=== PATIENT | female | born 1960 | race Caucasian/White ===

== ENCOUNTER 2017-08-02 11:13 | Outpatient (CLI) | payer OTHER | END 2017-08-02 11:14 | disposition home or self-care (01) | LOC: SC 11:13 | PROVIDERS: ATTEND Internal Medicine Pulmonary Disease | DX: G47.33 Obstructive sleep apnea (adult) (pediatric) (principal) | CPT/HCPCS: 99203; 99212 ==

== ENCOUNTER 2017-10-07 10:22 | Outpatient (CLI) | payer OTHER | END 2017-10-07 10:23 | disposition home or self-care (01) | LOC: SC 10:22 | PROVIDERS: ATTEND Nurse Practitioner Family | DX: G47.33 Obstructive sleep apnea (adult) (pediatric) (principal) | CPT/HCPCS: 99212; 99214 ==

== ENCOUNTER 2017-11-29 10:43 | Outpatient (CLI) | payer OTHER | END 2017-11-29 10:44 | disposition home or self-care (01) | LOC: SC 10:43 | PROVIDERS: ATTEND Nurse Practitioner Family | DX: G47.33 Obstructive sleep apnea (adult) (pediatric) (principal) | CPT/HCPCS: 99212; 99214 ==

== ENCOUNTER 2018-03-07 09:00 | Outpatient (CLI) | payer OTHER | END 2018-03-07 09:01 | disposition home or self-care (01) | LOC: SC 09:00 | PROVIDERS: ATTEND Nurse Practitioner Family | DX: G47.33 Obstructive sleep apnea (adult) (pediatric) (principal); R60.0 Localized edema; R06.00 Dyspnea, unspecified; I49.9 Cardiac arrhythmia, unspecified | CPT/HCPCS: 99212; 99214 ==

== ENCOUNTER 2018-03-10 16:12 | Outpatient (CLI) | payer OTHER ==
--- NOTE | 2018-03-11 08:41 | XRAY Report ---
REVISED: THIS REPORT WAS ORIGINALLY SIGNED ON 03/11/2018 @ 0842. THE PRIMARY CARE PROVIDER FIELD REVISED ON 03/17/2018. Procedure Date: 03/10/2018 Accession Number: [id number] Procedure: XR - Chest 2 View X-Ray CPT Code: 63119 FULL RESULT: EXAM: Chest 2 View X-Ray DATE: 03/10/2018 4:51 PM CLINICAL HISTORY: DYSPNEA, IRREGULAR HEARTBEAT COMPARISON: None. TECHNIQUE: 2 views. FINDINGS: Lungs/Pleura: No focal opacities evident. No pneumothorax or pleural effusion. Normal volumes. Mediastinum: The cardiac silhouette remains enlarged. Other: None. IMPRESSION: Stable cardiomegaly. No evidence of acute cardiopulmonary disease. RADIA MTDD
== END 2018-03-10 16:13 | disposition home or self-care (01) ==
LOC: RT 16:12 → DI 16:13
PROVIDERS: ATTEND Nurse Practitioner Family
DX: R06.00 Dyspnea, unspecified (principal); I49.9 Cardiac arrhythmia, unspecified
CPT/HCPCS: 71046; 93005

== ENCOUNTER 2018-04-11 08:51 | Outpatient (CLI) | payer OTHER | END 2018-04-11 08:52 | disposition home or self-care (01) | LOC: SC 08:51 | PROVIDERS: ATTEND Nurse Practitioner Family | DX: G47.33 Obstructive sleep apnea (adult) (pediatric) (principal) | CPT/HCPCS: 99212; 99214 ==

== ENCOUNTER 2018-06-13 11:26 | Outpatient (CLI) | payer OTHER | END 2018-06-13 11:27 | disposition home or self-care (01) | LOC: SC 11:26 | PROVIDERS: ATTEND Nurse Practitioner Family | DX: G47.33 Obstructive sleep apnea (adult) (pediatric) (principal) | CPT/HCPCS: 99212; 99214 ==

== ENCOUNTER 2018-12-29 10:21 | Outpatient (CLI) | payer OTHER | END 2018-12-29 10:22 | disposition home or self-care (01) | LOC: SC 10:21 | PROVIDERS: ATTEND Nurse Practitioner Family | DX: G47.33 Obstructive sleep apnea (adult) (pediatric) (principal); R60.0 Localized edema | CPT/HCPCS: 99212; 99215 ==

== ENCOUNTER 2019-04-06 13:13 | Outpatient (CLI) | payer OTHER | END 2019-04-06 13:14 | disposition home or self-care (01) | LOC: CAM 13:13 | PROVIDERS: ATTEND Family Medicine | DX: F43.0 Acute stress reaction (principal); M79.604 Pain in right leg | CPT/HCPCS: 97810; 97811 ==

== ENCOUNTER 2019-04-16 20:45 | Outpatient (CLI) | payer OTHER | END 2019-04-16 20:46 | disposition home or self-care (01) | LOC: SC 20:45 | PROVIDERS: ATTEND Internal Medicine Pulmonary Disease | DX: G47.33 Obstructive sleep apnea (adult) (pediatric) (principal) | CPT/HCPCS: 95811 ==

== ENCOUNTER 2019-05-15 09:20 | Outpatient (CLI) | payer OTHER ==
[2019-05-15 10:36] VITALS: BP 120/70
--- NOTE | 2019-05-15 10:36 | SLEEP CARE CONSULTATION ---
Information from patient questionnaire entered by Cynthia Matson. I have reviewed and concur with the information entered by Cynthia Matson. This document represents the service I personally performed and the decisions made by me, Mei Bonilla, RN, MSN, BRUSHER MACHINE. History of Present Illness Previous diagnosis: Moderate, Obstructive Sleep Apnea-Hypopnea Syndrome AHI: 16.9 Reason for CPAP/BiPAP follow up: with sleep study, other (DIFFICULTY GETTING SUPPLIES) Equipment type: BiPAP Equipment obtained from: [facility] Mask style: Nasal Mask brand: Respironics (Dreamwear nasal pillows) Backup mask available: No Prior sleep studies: Yes Year and Where: 2010 [facility] additional information: She was transferred to [place], they called her twice but never sent supplies. Thus she went back to [facility] to get supplies and got one set of supplies si nce then. Consultation with direct care staffer and informed patient her dyspnea is from her weight and the peripheral edema is from high BiPAP pressure. A manual titration study was advised for further evaluation of her pressure needs and completed with follow up of results today. She has started consultation with bariatric surgeon about a month ago and has appointments with senior buyer planner and aircraft detail draftsperson and psychiatrist. Sleep Study - Polysomnography Polysomnography findings: The quality of the study is good. BiPAP was initiated at 15/10 cmH2O and titrated up to 21/15 cmH2O. BiPAP at 21/15 cmH2O appeared to be optimal (AHI of 0.5 per hour on the pressure). There was supine REM sleep on the pressure. Oxygen saturation was mildly low from the frequent residual respiratory events on lower BiPAP settings. The patient appeared to have tolerated positive airway pressure therapy well. The patients sleep efficiency was slightly reduced due to sleep onset insomnia. The sleep architecture was normal. There was no periodic limb movement of sleep. Cardiac rhythm was normal sinus rhythm without significant arrhythmia. No abnormal behavior (parasomnia) observed during the night. CPAP Compliance Data - Data Reviewed with Patient Average duration of nightly device use: 6H 49M Current pressure setting (cmH2O): 17/9 Humidity settin Heated hose settin Average residual AHI: 5.3 Average large leak: 18 seconds On Oxygen: No Subjective Patient concerns: reports: other (no change in peripheral edema / wears compression hose). denies: aerophagia, mask discomfort (mask discomfort at sleep study from being too tight. ), air blowing in eyes, mask leak noise, condensation in mask/hose (does not use humidity ), nasal congestion, dry mouth, nose, throat, epistaxis Observed to snore while using device: No (she is single and sleeps alone) Current pressure setting perceived as: comfortable On therapy, patient: reports: sleeping better, awakening more refreshed, being more awake and alert during the day, more rested overall. denies: drowsiness while driving Initial [place] Sleepiness Scale score: 9 Current [place] Sleepiness Scale score: 6 Allergies and Home Medications Known drug allergies: Yes (cymbalta, prozac, benazapril, lisinopril, latex) Home medication list reviewed: Yes Allergy and home medication list: Medication Name (generic/name brand) Strength & Dosage Glipizide 10mg tab with meals (instead of Novolog) Cozaar 25mg tab one daily Gabapentin 300mg tab two tab pm Hydrocodone-Acetaminophen 5-500mg tab one half to one q4-6h PRN Novolog Insulin Units SQ on SS Lantus Insulin 56 Units SQ twice daily Valium 10mg tab as needed Robaxin 500mg tab HS and as needed. Calcium 600mg tab twice daily Singular 10mg tab one daily Aspirin 81mg tab one daily Vitamin D3 15,000IU cap one daily winter /[id number] summer Naprosyn 500mg tab one daily macrobid 100mg HS Allergy List Cymbalta Prozac Benazapril Lisinopril Latex ? Review of Systems Review of systems same as previous: No (essential tremor) Physical Exam Blood Pressure: 120/70 Cuff size: wrist Heart Rate: 71 O2 Saturation: 97 Height: 5 ft 6 in Weight (kg): 357 lb 12.8 oz Body Mass Index: 57.7 BMI Classification: Class 3 Impression and Plan 1. Obstructive Sleep Apnea-Hypopnea Syndrome, moderate, with good treatment compliance and slightly elevated residual AHI on compliance report on BiPAP of 17/9cmH20 for 14 days noted on modem. She states she uses nightly but modem stopped working and she did not have a SD card so I gave her one for back up. On BiPAP therapy, the patient has better sleep quality and is more rested overall. I will increase her BiPAP pressure to 21/08pdK41 as noted optimal on the titration study. She voiced she is not happy that she has a higher pressure need but will try using. I showed her how her apnea increases when in REM sleep on the hypnogram and explained rationale. If the pressure change is uncomfortable, she is advised to contact me to adjust for comfort. The typo in titration report impression will be corrected and copy sent to patient and her PCP. Since she does not use the humidity, I gave her a sample saline nasal spray to use prior to BiPAP for moisture due to her concerns of risk of dryness with higher pressure. If sufficient , she can use water in reservoir as a pass over before needed to heat plate. For her supply problems, she will stay with [facility] for now and determine if she will transfer at next follow up if still supply problems. Patient's apnea severity and rationale for treatment to reduce apnea, improve sleep quality and reduce cardiovascular and cerebrovascular events was reviewed. I also reviewed the benefit of consistent device use of CPAP for diabetes, anxiety. * Change BiPAP pressure to 21/15 cmH2O * saline nasal spray prior to BiPAP * Consider humidity if dryness symptoms * send corrected copy of report to patient and PCP * Notify me if snoring with mask or feeling that the pressure is too much or too little * Attempt to lose weight * Return for follow up in 1-2 months, or sooner if concerns arise I spent 100% of this 40 minute visit face to face with the patient with greater than 50% of this was spent time counseling the patient and coordination of care.
== END 2019-05-15 09:21 | disposition home or self-care (01) ==
LOC: SC 09:20
PROVIDERS: ATTEND Nurse Practitioner Family
DX: G47.33 Obstructive sleep apnea (adult) (pediatric) (principal)
CPT/HCPCS: 99212; 99215

== ENCOUNTER 2019-06-28 00:21 | Emergency (ER) | payer OTHER ==
[2019-06-28 01:05] LABS: BASOPHILS % (AUTO) 0.5 %; EOSINOPHILS # (AUTO) 0.1 10^3/uL (0.0-0.7); EOSINOPHILS % (AUTO) 1.7 %; HGB - HEMOGLOBIN 10.6 g/dL (12.0-16.0); LYMPHOCYTES # (AUTO) 2.5 10^3/uL (1.5-3.5); LYMPHOCYTES % (AUTO) 29.6 %; MEAN CORPUSCULAR HEMOGLOBIN 27.7 pg (27.0-31.0); MEAN CORPUSCULAR HGB CONC 30.5 g/dL (32.0-36.0); MEAN CORPUSCULAR VOLUME 90.8 fL (81.0-99.0); MEAN PLATELET VOLUME 9.7 fL (7.9-10.8); MONOCYTES # (AUTO) 0.8 10^3/uL (0.0-1.0); NEUTROPHILS # (AUTO) 4.9 10^3/uL (1.5-6.6); NEUTROPHILS % (AUTO) 58.6 %; PLT - PLATELET COUNT 274 10^3/uL (130-450); RED BLOOD COUNT 3.82 10^6/uL (4.20-5.40); RED CELL DISTRIBUTION WIDTH 13.5 % (12.0-15.0); WHITE BLOOD COUNT 8.3 x10^3/uL (4.8-10.8)
[2019-06-28 01:06] LABS: BILIRUBIN,URINE NEGATIVE (NEGATIVE); CLARITY,URINE CLEAR (CLEAR); GLUCOSE, URINE (UA) 100 mg/dL (NEGATIVE); KETONES,URINE (UA) NEGATIVE (NEGATIVE); LEUKOCYTE ESTERASE, URINE NEGATIVE (NEGATIVE); NITRITE,URINE NEGATIVE (NEGATIVE); OCCULT BLOOD,URINE NEGATIVE (NEGATIVE); PH,URINE 5.5 PH (5.0-7.5); PROTEIN,URINE NEGATIVE (NEGATIVE); UROBILINOGEN,URINE 0.2 (NORMAL) E.U./dL (NORMAL)
[2019-06-28 01:19] LABS: ALBUMIN 3.6 g/dL (3.2-5.5); ALBUMIN/GLOBULIN RATIO 0.9 (1.0-2.2); BILIRUBIN,TOTAL 0.7 mg/dL (0.2-1.0); CREATININE 0.8 mg/dL (0.4-1.0); TOTAL PROTEIN 7.8 g/dL (6.7-8.2)
--- NOTE | 2019-06-28 01:21 | ED Physician Documentation ---
PD HPI ABD PAIN - Stated complaint Stated Complaint: STOMACH PX - Chief complaint Chief Complaint: Abd Pain - History obtained from History obtained from: Patient - History of Present Illness Timing - onset: Yesterday, Other (episodic for momths but this episode began 1-2 days ago and is now severe at times) Timing - duration: Days Timing - details: Waxing and waning Pain level max: 6 Pain level now: 4 Quality: Sharp Location: All over / everywhere Radiation: No: Chest, , Lower back, Left flank, Left shoulder, Right flank, Right shoulder, Upper back Improved by: Other (no ameliorating factors) Worsened by: Other (no apparent exacerbating factors) Associated symptoms: Dysuria. No: Fever, Nausea, Vomiting, Diarrhea, Constipation Similar symptoms before: No diagnosis Recently seen: Not recently seen Review of Systems Constitutional: reports: Reviewed and negative Cardiac: reports: Reviewed and negative Respiratory: reports: Reviewed and negative GI: reports: Abdominal Pain. denies: Nausea, Vomiting, Constipation, Diarrhea : reports: Dysuria Musculoskeletal: denies: Back pain PD PAST MEDICAL HISTORY - Past Medical History Cardiovascular: Hypertension, High cholesterol Endocrine/Autoimmune: Type 2 diabetes : Chronic bladder infection Musculoskeletal: Chronic back pain - Past Surgical History Past Surgical History: Yes Ortho: Other - Present Medications Home Medications: Ambulatory Orders Medication Instructions Recorded Confirmed Diazepam [Valium] 10 mg PO Q8H PRN 05/15/16 05/15/16 Estradiol [Estrace] 42.5 gm VG DAILY 05/15/16 05/15/16 Glipizide [Glipizide Xl] 2 tab PO BID 05/15/16 05/15/16 Insulin Aspart [Novolog Flexpen] SQ TID 05/15/16 Insulin Glargine,Hum.rec.anlog 56 units SQ DAILY PM 05/15/16 05/15/16 [Lantus] Losartan [Cozaar] 25 mg PO DAILY 05/15/16 05/15/16 Methocarbamol 500 - 1,000 mg PO QID PRN 05/15/16 05/15/16 Naproxen [Naprosyn] 500 mg PO BID PRN 05/15/16 05/15/16 Nitrofurantoin Monohyd/M-Cryst 100 mg PO DAILY 05/15/16 05/15/16 [Macrobid 100 mg Capsule] Gabapentin 600 mg PO QPM 06/28/19 06/28/19 Montelukast [Singulair] 10 mg ORAL DAILY 06/28/19 06/28/19 Ondansetron Odt [Zofran] 4 mg TL Q6H PRN #10 tablet 06/28/19 Ondansetron [Ondansetron Odt] 8 mg PO QID 06/28/19 06/28/19 - Allergies Allergies/Adverse Reactions: Allergies Allergy/AdvReac Type Severity Reaction Status Date / Time fluoxetine HCl * Allergy Unknown Verified 04/28/16 21:21 [From Prozac] latex Allergy Hives Verified 06/28/19 00:31 lisinopril Allergy Unknown Verified 04/28/16 21:21 mercury (elemental) Allergy Unknown Verified 04/28/16 21:21 oxycodone Allergy Unknown Verified 04/28/16 21:21 pertussis vaccine,adsorbed Allergy Unknown Verified 04/28/16 21:21 - Social History Does the pt smoke?: No Smoking Status: Never smoker Does the pt drink ETOH?: Yes Does the pt have substance abuse?: No - Immunizations Immunizations are current?: Yes - POLST Patient has POLST: No PD ED PE NORMAL - Vitals Vital signs reviewed: Yes - General General: Alert and oriented X 3, No acute distress, Well developed/nourished - Neck Neck: Supple, no meningeal sign - Cardiac Cardiac: RRR, No murmur - Respiratory Respiratory: No respiratory distress, Clear bilaterally - Abdomen Abdomen: Normal bowel sounds, Soft, Non distended, Other (mild TTP across lower abdomen, greatest on left) - Back Back: No CVA TTP - Derm Derm: Normal color, Warm and dry, No rash - Extremities Extremities: No edema PD ED PE EXPANDED - Abdomen Abdomen: Other (soft, nontender umbilical hernia) Results - Vitals Vitals: Oxygen O2 Source Room air - Labs Labs: Laboratory Tests 06/28/19 06/28/19 06/28/19 00:56 00:56 00:56 WBC 8.3 RBC 3.82 L Hgb 10.6 L Hct 34.7 L MCV 90.8 MCH 27.7 MCHC 30.5 L RDW 13.5 Plt Count 274 MPV 9.7 Neut # (Auto) 4.9 Lymph # (Auto) 2.5 [place] # (Auto) 0.8 Eos # (Auto) 0.1 Baso # (Auto) 0.0 Absolute Nucleated RBC 0.00 Nucleated RBC % 0.0 Sodium 138 Potassium 3.9 Chloride 105 Carbon Dioxide 24 Anion Gap 9.0 BUN 17 Creatinine 0.8 Estimated GFR (MDRD) 74 L Glucose 199 H Calcium 9.0 Total Bilirubin 0.7 AST 16 ALT 18 Alkaline Phosphatase 43 Total Protein 7.8 Albumin 3.6 Globulin 4.2 Albumin/Globulin Ratio 0.9 L Lipase 22 Urine Color YELLOW Urine Clarity CLEAR Urine pH 5.5 Ur Specific [place] >=1.030 H Urine Protein NEGATIVE Urine Glucose (UA) 100 H Urine Ketones NEGATIVE Urine Occult Blood NEGATIVE Urine Nitrite NEGATIVE Urine Bilirubin NEGATIVE Urine Urobilinogen 0.2 (NORMAL) Ur Leukocyte Esterase NEGATIVE Ur Microscopic Review NOT INDICATED Urine Culture Comments NOT INDICATED - Rads (name of study) CT A/P Radiology: Prelim report reviewed, See rad report PD MEDICAL DECISION MAKING - ED course Complexity details: reviewed results, re-evaluated patient, considered differential, d/w patient ED course: test results d/w patient. she declines any medications that would preclude driving (drove self and wants to drive home, as well). Departure - Departure Disposition: Home, Self Care Clinical Impression: Abdominal pain Condition: Good Instructions: ED Abdominal Pain Unkn Cause Follow-Up: CHRIS LING [Primary Care Provider] - Prescriptions: Ondansetron Odt [Zofran] 4 mg TL Q6H PRN #10 tablet PRN Reason: Nausea / Vomiting Forms: Activity restrictions Discharge Date/Time: 06/28/19 03:15
[2019-06-28] MEDS ORDERED: ONDANSETRON 4 MG/2 ML VIAL IVP STA (01:33)
[2019-06-28] MEDS ORDERED: KETOROLAC 30 MG/ML VIAL IVP STA (01:34)
[2019-06-28] MEDS ORDERED: IOVERSOL 320 100 ML VIAL IVP ONE ×2 (01:58→02:16)
--- NOTE | 2019-06-28 02:35 | CT Report ---
Reason: abd. pain Procedure Date: 06/28/2019 Accession Number: [id number] / [id number] Procedure: CT - Abdomen/Pelvis W CPT Code: FULL RESULT: EXAM: CT ABDOMEN AND PELVIS EXAM DATE: 06/28/2019 02:13 AM. CLINICAL HISTORY: Abd. pain. COMPARISONS: None. TECHNIQUE: Routine helical CT imaging was performed through the abdomen and pelvis. IV contrast: OPTI 320 100ML. Enteric contrast: No. Reconstructions: Coronal and sagittal. In accordance with CT protocol optimization, one or more of the following dose reduction techniques were utilized for this exam: automated exposure control, adjustment of mA and/or KV based on patient size, or use of iterative reconstructive technique. FINDINGS: Lung Bases: Unremarkable. Liver: Normal. No masses. Gallbladder/Bile Ducts: Unremarkable. Spleen: Normal. Pancreas: Normal. Adrenal Glands: Normal. Kidneys: Normal. No masses or hydronephrosis. Peritoneal Cavity/Bowel: Normal. No free fluid, free air or adenopathy. No masses or acute inflammatory process. There is a large scott-hernia of adipose tissue. The defect in the anterior abdominal wall measures 20 mm and the hernia sac of adipose tissue measures 7.6 on a metered. There is no evidence for bowel obstruction. The small bowel and colon are unremarkable. No inflammatory changes. No evidence for appendicitis. Pelvic Organs: Normal. The bladder and visualized pelvic organs are within normal limits. Vasculature: No aneurysms or other significant abnormality. Bones: No significant abnormality. Other: None. IMPRESSION: 1. No evidence for renal calculi and no hydronephrosis. 2. Large umbilical hernia of adipose tissue. 3. No inflammatory changes of the bowel. RADIA
[2019-06-28 03:13] VITALS: BP 96/50
== END 2019-06-28 03:15 | disposition home or self-care (01) ==
LOC: ED 00:21
DX: R10.30 Lower abdominal pain, unspecified (principal); K42.9 Umbilical hernia without obstruction or gangrene; I10 Essential (primary) hypertension; E11.9 Type 2 diabetes mellitus without complications; Z79.4 Long term (current) use of insulin
CPT/HCPCS: 36415; 74177; 80053; 81003; 83690; 85025; 96374; 99284; Q9967; 81001; 87086

== ENCOUNTER 2019-10-16 09:01 | Outpatient (CLI) | payer OTHER ==
--- NOTE | 2019-10-16 09:41 | SLEEP CARE CONSULTATION ---
Information from patient questionnaire entered by Sobia Reyes. I have reviewed and concur with the information entered by Sobia Reyes. This document represents the service I personally performed and the decisions made by me, Mei Bonilla, RN, MSN, FUR COMBER. History of Present Illness Previous diagnosis: Moderate, Obstructive Sleep Apnea-Hypopnea Syndrome AHI: 16.9 Reason for follow up: three month Equipment type: BiPAP Equipment obtained from: [employer] (happy with correct supplies though a delay in initial process and ability to change cushions as needed.) Mask style: Nasal pillows Backup mask available: No (keep current mask when replaced ) Last cushion change: 2 weeks ago HPI additional information: The pressure change is more comfortable to use. CPAP Compliance Data - Data Reviewed with Patient Average duration of nightly device use: 6.5 Compliance rate %: 96.7 (90 days) Current pressure setting (cmH2O): 20/12 Humidity settin Heated hose settin Average residual AHI: 2.8 Average large leak: 41 sec Subjective Patient concerns: reports: dry mouth, nose, throat (New chinstrap not working as well as her previous one that is no longer made ), other (headgear). denies: aerophagia, mask discomfort, air blowing in eyes, mask leak noise, condensation in mask/hose, nasal congestion, epistaxis Observed to snore while using device: No Current pressure setting perceived as: comfortable On therapy, patient: reports: sleeping better, awakening more refreshed, being more awake and alert during the day, more rested overall. denies: drowsiness while driving Initial [place] Sleepiness Scale score: 9 Current [place] Sleepiness Scale score: 4 Allergies and Home Medications Known drug allergies: Yes Home medication list reviewed: Yes (singular is bid, glipizide 5mg, gabapentin 600mgHS 100mg& pm) Review of Systems Review of systems same as previous: No (Cholecystitis and surgery planned before bariatric ) Physical Exam Blood Pressure: 128/70 Cuff size: long Heart Rate: 67 O2 Saturation: 97 Height: 5 ft 6 in Weight: 348 lb 12.8 oz Weight change since last visit: lost 5 pounds Body Mass Index: 56.2 BMI Classification: Obesity Class 3 Impression and Plan 1. Obstructive Sleep Apnea-Hypopnea Syndrome, moderate, with good treatment compliance and good apnea control. On BiPAP therapy, the patient has better sleep quality and is more rested overall. She tried to use the humidity when she had a cold to reduce nasal congestion but forgot how. Thus I instructed her again how to change settings on sample device. Printed instructions given and rationale why to change. I answered her questions of when re-evaluation of her apnea after weight loss. Until she obtains a better chinstrap, I discussed just putting water in reservoir for a pass over for humidity benefit. She has felt chest humidity when she had a higher humidity setting. Since there is an expectation of losing 50 pounds within a month of bariatric sugery planned in December, I will see patient in 3 months to review her BiPAP pressure needs. Symptoms to report for earlier pressure change discussed. She is aware to bring her BiPAP to her surgery for post op care and if overnight stay. Patient's apnea severity and rationale for treatment to reduce apnea, improve sleep quality and reduce cardiovascular and cerebrovascular events was reviewed. I also reviewed the benefit of consistent device use of BiPAP for diabetes, depression/anxiety. * Continue BiPAP pressure at 20/12 cmH2O * copy of compliance for anesthesiologist * Adjust humidity to comfort * Notify me if snoring with mask or feeling that the pressure is too much or too little * Continue to lose weight * Call this office if any problems using BiPAP * Return for follow up in 3 months , or sooner if concerns arise Time Spent with Patient (minutes): 30 I spent 100% of this visit face to face with the patient with greater than 50% of this was spent time counseling the patient and coordination of care.
[2019-10-16 09:42] VITALS: BP 128/70
== END 2019-10-16 09:02 | disposition home or self-care (01) ==
LOC: SC 09:01
PROVIDERS: ATTEND Nurse Practitioner Family
DX: G47.33 Obstructive sleep apnea (adult) (pediatric) (principal); E66.9 Obesity, unspecified; Z68.43 Body mass index [BMI] 50.0-59.9, adult
CPT/HCPCS: 99212; 99214

== ENCOUNTER 2020-04-17 15:26 | Emergency (ER) | payer OTHER ==
--- NOTE | 2020-04-17 16:04 | ED Physician Documentation ---
PD HPI NVD - Stated complaint Stated Complaint: N/V/D STOMACH PX - Chief complaint Chief Complaint: Abd Pain - History obtained from History obtained from: Patient - History of Present Illness Timing - onset: How many days ago (5) Timing - duration: Days (5) Timing - details: Abrupt onset, Still present Associated symptoms: Abdominal pain. No: Fever, Hematemesis, Melena, Dysuria Contributing factors: Bad food (Abrupt onset of nausea vomiting and diarrhea after a few hours after a restaurant meal. Initially with nausea and vomiting and then diarrhea several hours later), Other (She had the abrupt symptoms and was seen the next day at the ER in [place] with IV fluids and antiemetics. Presumption was food poisoning. She was discharged with Zofran. Continue with symptoms however persisting now for almost 5 days). No: Sick contact, Travel, Recent antibiotics Improved by: No: Eating, Meds (zofran not working well on the nausea.) Worsened by: Eating Similar symptoms before: Has not had sx before Recently seen: Emergency Dept (4 days ago, just after onset of symptoms.) Review of Systems Constitutional: reports: Myalgias. denies: Fever, Chills Nose: denies: Rhinorrhea / runny nose, Congestion Throat: denies: Sore throat Respiratory: denies: Cough GI: reports: Abdominal Pain (cramping mostly right to mid abd), Nausea, Vomiting, Diarrhea (loose to watery, no blood) : denies: Dysuria Skin: denies: Rash Neurologic: reports: Generalized weakness. denies: Near syncope, Altered mental status, Headache PD PAST MEDICAL HISTORY - Past Medical History Cardiovascular: Hypertension, High cholesterol Endocrine/Autoimmune: Type 2 diabetes : Chronic bladder infection Musculoskeletal: Chronic back pain - Past Surgical History Past Surgical History: Yes Ortho: Other HEENT: Tonsil/Adenoidectomy - Present Medications Home Medications: Ambulatory Orders Medication Instructions Recorded Confirmed Diazepam [Valium] 10 mg PO Q8H PRN 05/15/16 05/15/16 Estradiol [Estrace] 42.5 gm VG DAILY 05/15/16 05/15/16 Glipizide [Glipizide Xl] 2 tab PO BID 05/15/16 05/15/16 Insulin Aspart [Novolog Flexpen] SQ TID 05/15/16 Insulin Glargine,Hum.rec.anlog 56 units SQ DAILY PM 05/15/16 05/15/16 [Lantus] Losartan [Cozaar] 25 mg PO DAILY 05/15/16 05/15/16 Naproxen [Naprosyn] 500 mg PO BID PRN 05/15/16 05/15/16 Nitrofurantoin Monohyd/M-Cryst 100 mg PO DAILY 05/15/16 05/15/16 [Macrobid 100 mg Capsule] methocarbamoL [Methocarbamol] 500 - 1,000 mg PO QID PRN 05/15/16 05/15/16 Gabapentin 600 mg PO QPM 06/28/19 06/28/19 Montelukast [Singulair] 10 mg ORAL DAILY 06/28/19 06/28/19 Ondansetron Odt [Zofran] 4 mg TL Q6H PRN #10 tablet 06/28/19 Ondansetron [Ondansetron Odt] 8 mg PO QID 06/28/19 06/28/19 Azithromycin [Zithromax] 0 mg PO DAILY #6 tablet 04/17/20 Diphenoxylate/Atropine [Lomotil] 1 each PO QID PRN #16 tablet 04/17/20 Hydrocodone/Acetaminophen [[place] 1 each PO Q6H PRN #10 tablet 04/17/20 5-325 Tablet] Promethazine [Phenergan] 25 mg PO Q6H PRN #20 tab 04/17/20 - Allergies Allergies/Adverse Reactions: Allergies Allergy/AdvReac Type Severity Reaction Status Date / Time fluoxetine HCl * Allergy Unknown Verified 04/17/20 15:37 [From Prozac] latex Allergy Hives Verified 04/17/20 15:37 lisinopril Allergy Unknown Verified 04/17/20 15:37 mercury (elemental) Allergy Unknown Verified 04/17/20 15:37 oxycodone Allergy Unknown Verified 04/17/20 15:37 pertussis vaccine,adsorbed Allergy Unknown Verified 04/17/20 15:37 - Social History Does the pt smoke?: No Smoking Status: Never smoker Does the pt drink ETOH?: Yes Does the pt have substance abuse?: No - Immunizations Immunizations are current?: Yes - POLST Patient has POLST: No PD ED PE NORMAL - Vitals Vital signs reviewed: Yes - General General: Alert and oriented X 3, Well developed/nourished, Other (obese) - HEENT HEENT: Pharynx benign. No: Moist mucous membranes - Neck Neck: Supple, no meningeal sign, No adenopathy - Cardiac Cardiac: RRR, No murmur - Respiratory Respiratory: Clear bilaterally - Abdomen Abdomen: Soft, Non distended, No organomegaly, Other (Some tenderness with increased bowel sounds and mild distention diffusely but more so in the central to right mid abdomen. No percussion or rebound tenderness). No: Normal bowel sounds (increased bowel sounds upper abd. ) - Back Back: No CVA TTP - Derm Derm: Normal color, Warm and dry - Extremities Extremities: Normal ROM s pain, No edema, No calf tenderness / cord - Neuro Neuro: Alert and oriented X 3, No motor deficit, Normal speech Results - Vitals Vitals: Vital Signs - 24 hr 04/17/20 04/17/20 04/17/20 15:31 17:15 19:19 Temperature 35.5 C L Heart Rate 72 70 75 Respiratory 22 18 18 Rate Blood Pressure 151/53 H 144/65 H 122/76 O2 Saturation 98 100 98 04/17/20 21:23 Temperature 36.9 C Heart Rate 68 Respiratory 22 Rate Blood Pressure 151/77 H O2 Saturation 99 Oxygen O2 Source Room air - Labs Labs: Laboratory Tests 04/17/20 04/17/20 04/17/20 16:10 16:10 18:28 WBC 9.6 RBC 3.82 L Hgb 11.4 L Hct 35.9 L MCV 94.0 MCH 29.8 MCHC 31.8 L RDW 12.5 Plt Count 252 MPV 9.8 Neut # (Auto) 7.1 H Lymph # (Auto) 1.6 [place] # (Auto) 0.8 Eos # (Auto) 0.1 Baso # (Auto) 0.0 Absolute Nucleated RBC 0.00 Nucleated RBC % 0.0 Sodium 138 Potassium 3.8 Chloride 103 Carbon Dioxide 23 Anion Gap 12.0 BUN 12 Creatinine 0.7 Estimated GFR (MDRD) 86 L Glucose 187 H Calcium 8.5 Total Bilirubin 0.3 AST 15 ALT 19 Alkaline Phosphatase 55 Total Protein 7.2 Albumin 3.3 Globulin 3.9 Albumin/Globulin Ratio 0.8 L Lipase 16 L Urine Color YELLOW Urine Clarity CLEAR Urine pH 5.5 Ur Specific [place] 1.020 Urine Protein NEGATIVE Urine Glucose (UA) NEGATIVE Urine Ketones NEGATIVE Urine Occult Blood NEGATIVE Urine Nitrite NEGATIVE Urine Bilirubin NEGATIVE Urine Urobilinogen 0.2 (NORMAL) Ur Leukocyte Esterase NEGATIVE Ur Microscopic Review NOT INDICATED Urine Culture Comments NOT INDICATED - Rads (name of study) abd/pelvic CT Radiology: Prelim report reviewed, Discussed with rads (possible incarcerated hernia with dilated bowel loops upstream. ), See rad report PD MEDICAL DECISION MAKING - ED course Complexity details: re-evaluated patient (Feeling improved with IV fluids and medicines though still some cramping. Will add more medicine), considered differential (She had had stool culture and studies at [place] several days ago which were negative. She did not have another bowel movement as yet here. Symptoms consistent and persistent with food poisoning or stomach enteritis viral. Can get labs and CT scan to ensure no localized infection), d/w patient ED course: CT showing possible partial bowel obstruction pattern due to hernia. No other focal infection. She is obese with large hernia, so not sure it would be reducible. Will consult surgery for eval and opinion. Otherwise pt is actually doing better regarding nausea and stomach pains. Departure - Departure Disposition: Home, Self Care Clinical Impression: Abdominal cramping Vomiting Qualifiers: Vomiting type: unspecified Vomiting Intractability: non-intractable Nausea presence: with nausea Qualified Code(s): R11.2 - Nausea with vomiting, unspecified Diarrhea Qualifiers: Diarrhea type: presumed infectious Qualified Code(s): R19.7 - Diarrhea, unspecified Umbilical hernia Qualifiers: Obstruction and gangrene presence: with obstruction but without gangrene Qualified Code(s): K42.0 - Umbilical hernia with obstruction, without gangrene Condition: Stable Record reviewed to determine appropriate education?: Yes Instructions: ED Food Poison Or Gastroenteritis Follow-Up: CHRIS LING [Primary Care Provider] - Prescriptions: Diphenoxylate/Atropine [Lomotil] 1 each PO QID PRN #16 tablet PRN Reason: Diarrhea Hydrocodone/Acetaminophen [[place] 5-325 Tablet] 1 each PO Q6H PRN #10 tablet PRN Reason: Pain Promethazine [Phenergan] 25 mg PO Q6H PRN #20 tab PRN Reason: Nausea / Vomiting Azithromycin [Zithromax] 0 mg PO DAILY #6 tablet Comments: Given the longer duration of your symptoms, the consideration will be more of a potential bacterial infection though it still could be a viral illness or extended food poisoning. Use Phenergan if needed for nausea since the ondansetron was not working very well. Lomotil if needed for diarrhea. Add hydrocodone if needed for cramps or pains. Zithromax antibiotic as directed for empiric treatment of possible bacterial enteritis. Recheck if not improving well over the next couple of days and return sooner if worse. Discharge Date/Time: 04/17/20 21:32
[2020-04-17 16:21] LABS: BASOPHILS % (AUTO) 0.3 %; EOSINOPHILS # (AUTO) 0.1 10^3/uL (0.0-0.7); EOSINOPHILS % (AUTO) 1.1 %; HGB - HEMOGLOBIN 11.4 g/dL (12.0-16.0); LYMPHOCYTES # (AUTO) 1.6 10^3/uL (1.5-3.5); LYMPHOCYTES % (AUTO) 16.2 %; MEAN CORPUSCULAR HEMOGLOBIN 29.8 pg (27.0-31.0); MEAN CORPUSCULAR HGB CONC 31.8 g/dL (32.0-36.0); MEAN PLATELET VOLUME 9.8 fL (7.9-10.8); MONOCYTES # (AUTO) 0.8 10^3/uL (0.0-1.0); MONOCYTES % (AUTO) 8.3 %; NEUTROPHILS # (AUTO) 7.1 10^3/uL (1.5-6.6); NEUTROPHILS % (AUTO) 73.7 %; PLT - PLATELET COUNT 252 10^3/uL (130-450); RED BLOOD COUNT 3.82 10^6/uL (4.20-5.40); RED CELL DISTRIBUTION WIDTH 12.5 % (12.0-15.0); WHITE BLOOD COUNT 9.6 x10^3/uL (4.8-10.8)
[2020-04-17 16:32] LABS: ALBUMIN 3.3 g/dL (3.2-5.5); ALBUMIN/GLOBULIN RATIO 0.8 (1.0-2.2); BILIRUBIN,TOTAL 0.3 mg/dL (0.2-1.0); CALCIUM 8.5 mg/dL (8.5-10.3); CREATININE 0.7 mg/dL (0.4-1.0); TOTAL PROTEIN 7.2 g/dL (6.7-8.2)
[2020-04-17] MEDS ORDERED: SODIUM CHLORIDE 0.9% 1,000 ML IV STA ×2 (16:57→19:03)
[2020-04-17] MEDS ORDERED: PROCHLORPERAZINE 10 MG/2 ML VIAL IVP STA (16:58)
[2020-04-17] MEDS ORDERED: KETOROLAC 15 MG/ML VIAL IVP STA (16:58)
[2020-04-17] MEDS ORDERED: DIPHENOX/ATROPINE 2.5/0.025 MG TABLET PO STA (16:58)
[2020-04-17] MEDS ORDERED: IOVERSOL 320 100 ML VIAL IVP ONE (18:36)
[2020-04-17 18:54] LABS: BILIRUBIN,URINE NEGATIVE (NEGATIVE); GLUCOSE, URINE (UA) NEGATIVE (NEGATIVE); KETONES,URINE (UA) NEGATIVE (NEGATIVE); LEUKOCYTE ESTERASE, URINE NEGATIVE (NEGATIVE); NITRITE,URINE NEGATIVE (NEGATIVE); OCCULT BLOOD,URINE NEGATIVE (NEGATIVE); PH,URINE 5.5 PH (5.0-7.5); PROTEIN,URINE NEGATIVE (NEGATIVE); UROBILINOGEN,URINE 0.2 (NORMAL) E.U./dL (NORMAL)
[2020-04-17 18:55] LABS: CLARITY,URINE CLEAR (CLEAR)
[2020-04-17] MEDS ORDERED: MORPHINE 2 MG/ML CARPUJECT IVP STA (18:56)
--- NOTE | 2020-04-17 19:28 | CT Report ---
PROCEDURE: Abdomen/Pelvis W INDICATIONS: vomiting and diarrhea; upper abd pain for 5 days CONTRAST: IV CONTRAST: Optiray 320 ml: 100 PO CONTRAST: *NO PO CONTRAST TECHNIQUE: After the administration of oral and intravenous contrast, 5 mm thick sections acquired from the diap hragms to the symphysis. 5 mm thick coronal and sagittal reformats were acquired. For radiation dos e reduction, the following was used: automated exposure control, adjustment of mA and/or kV accordin g to patient size. COMPARISON: None. FINDINGS: Image quality: Excellent. ABDOMEN: Lung bases: Mild dependent atelectasis is present bilaterally. No pleural effusion. Heart is normal s ize. Solid organs: Liver and spleen are normal in size and enhancement. Gallbladder is surgically absent Biliary system is non dilated. Pancreas enhances normally. No adrenal nodules. Kidneys demonstra te normal size and enhancement, without hydronephrosis. Peritoneum and bowel: The stomach is decompressed. The small bowel demonstrates overall normal calib er wall thickness; however there is a fat and small bowel containing umbilical hernia. Upstream to th e small bowel containing umbilical hernia the bowel appears moderately dilated. The downstream from t he umbilical hernia, the small bowel is decompressed. No bowel wall thickening to suggest ischemia. T race free fluid is present within the umbilical hernia. The colon is decompressed. Surgical clips are present near the cecum suggesting prior appendectomy. Nodes and vessels: No retroperitoneal or mesenteric adenopathy by size criteria. Aorta and inferior vena cava are normal in size. Miscellaneous: Large fat and small bowel containing umbilical hernia is present as described above. PELVIS: Genitourinary: Bladder wall thickness is normal. Miscellaneous: No inguinal hernias or adenopathy. Bones: No suspicious bony lesions. No vertebral body compression fractures. IMPRESSION: 1. Findings suspicious for early incarceration of a fat and small bowel containing umbilical hernia a s described above. No bowel wall thickening to suggest ischemia; however the upstream bowel appears m oderately distended raising the suspicion for partial or early small bowel obstruction. These findings were discussed with Dr. Reyes at 7:24 PM on 04/17/2020. Reviewed by: Amelia Hernandez MD on 04/17/2020 7:27 PM PDT Approved by: Amelia Hernandez MD on 04/17/2020 7:27 PM PDT Station ID: [id number]
--- NOTE | 2020-04-17 20:14 | CONSULTATION NOTE ---
Referring Provider Name of Referring Provider:: Eric Consult Date: 04/17/20 Chief Complaint - Chief Complaint Chief Complaint: Abdominal pain with nausea and vomiting History of Present Illness - Admitted From Admitted From:: Home - History Obtained From Records Reviewed: CAT scan images reviewed by myself History obtained from: Patient Exam Limitations: None - History of Present Illness HPI Comment/Other: 59-year-old female who presents the emergency room with loose stooling for several weeks recently evaluated in [facility] at which time she was obtained for stool studies which have as yet not been resulted. Denies sick contacts, or other recent travel. Superobese female who had been evaluated by bariatric surgery for a known umbilical hernia, large. She had been advised that staged approach would be weight loss for which she would potentially be considered a gastric sleeve, followed by laparoscopic assisted repair. [facility] emergency Dr. Reyes obtain CT scan which revealed possible bowel obstruction at level of hernia and surgical consultation was obtained. Patient does not independently recollect for how long or if this hernia has ever been incarcerated and how readily reducible it has been in the past. History - Past Medical History Cardiovascular: reports: Hypertension, High cholesterol, Coronary artery disease Endocrine/Autoimmune: reports: Type 2 diabetes : reports: Chronic bladder infection Musculoskeletal: reports: Chronic back pain MRSA Hx?: No - Past Surgical History General: reports: Cholecystectomy Ortho: reports: Other HEENT: reports: Tonsil/Adenoidectomy - POLST Patient has POLST: No Meds/Allgy - Home Medications Home Medications: Ambulatory Orders Medication Instructions Recorded Confirmed Diazepam [Valium] 10 mg PO Q8H PRN 05/15/16 05/15/16 Estradiol [Estrace] 42.5 gm VG DAILY 05/15/16 05/15/16 Glipizide [Glipizide Xl] 2 tab PO BID 05/15/16 05/15/16 Insulin Aspart [Novolog Flexpen] SQ TID 05/15/16 Insulin Glargine,Hum.rec.anlog 56 units SQ DAILY PM 05/15/16 05/15/16 [Lantus] Losartan [Cozaar] 25 mg PO DAILY 05/15/16 05/15/16 Naproxen [Naprosyn] 500 mg PO BID PRN 05/15/16 05/15/16 Nitrofurantoin Monohyd/M-Cryst 100 mg PO DAILY 05/15/16 05/15/16 [Macrobid 100 mg Capsule] methocarbamoL [Methocarbamol] 500 - 1,000 mg PO QID PRN 05/15/16 05/15/16 Gabapentin 600 mg PO QPM 06/28/19 06/28/19 Montelukast [Singulair] 10 mg ORAL DAILY 06/28/19 06/28/19 Ondansetron Odt [Zofran] 4 mg TL Q6H PRN #10 tablet 06/28/19 Ondansetron [Ondansetron Odt] 8 mg PO QID 06/28/19 06/28/19 Azithromycin [Zithromax] 0 mg PO DAILY #6 tablet 04/17/20 Diphenoxylate/Atropine [Lomotil] 1 each PO QID PRN #16 tablet 04/17/20 Hydrocodone/Acetaminophen [[place] 1 each PO Q6H PRN #10 tablet 04/17/20 5-325 Tablet] Promethazine [Phenergan] 25 mg PO Q6H PRN #20 tab 04/17/20 - Allergies Allergies/Adverse Reactions: Allergies Allergy/AdvReac Type Severity Reaction Status Date / Time fluoxetine HCl * Allergy Unknown Verified 04/17/20 15:37 [From Prozac] latex Allergy Hives Verified 04/17/20 15:37 lisinopril Allergy Unknown Verified 04/17/20 15:37 mercury (elemental) Allergy Unknown Verified 04/17/20 15:37 oxycodone Allergy Unknown Verified 04/17/20 15:37 pertussis vaccine,adsorbed Allergy Unknown Verified 04/17/20 15:37 Review of Systems - Constitutional Constitutional: reports: Fatigue, Weakness, Poor appetite - Respiratory Respiratory: denies: Cough, Wheezing, Snoring - Gastrointestinal Gastrointestinal: reports: Abdominal distention, Diarrhea, Change in bowel habits, Nausea, Vomiting, Poor appetite. denies: Rectal bleeding, Black stools, Bloody stools Exam - Vital Signs Vital Signs: Vital Signs x48h Temp Pulse Resp BP Pulse Ox 04/17/20 19:19 75 18 122/76 98 04/17/20 17:15 70 18 144/65 H 100 04/17/20 15:31 35.5 C L 72 22 151/53 H 98 - Physical Exam General Appearance: positive: No acute distress, Alert Eyes Bilateral: positive: Normal inspection, PERRL, EOMI ENT: positive: ENT inspection nml Neck: positive: Nml inspection Respiratory: positive: Chest non-tender, No respiratory distress, Breath sounds nml. negative: Wheezes, Rales, Rhonchi Cardiovascular: positive: Regular rate & rhythm Abdomen: positive: Non-tender, Other (See below). negative: Guarding, Rebound Back: positive: Nml inspection Skin: positive: Color nml Extremities: positive: Non-tender, Full ROM Neurologic/Psychiatric: positive: Oriented x3, CN's nml (2-12), Motor nml, Sens ation nml Comments/Other: Abdomen softly distended, no tenderness globally to palpation. Patient with large umbilical defect accommodating 3 fingerbreadths, approximately 3 to 4 cm if not more. Given the findings on CT which revealed a hernia and concerns for obstruction at least based on Dr. Reyes's clinical assessment, I advised the patient of the indication to undergo taxis AKA hernia reduction. Patient was advised of the risks and benefits and verbal informed consent was obtained. Patient was laid supine and with care the hernia was easily reducible without any complication. Patient was counseled as far as what to look for in the setting of incarceration , obstruction, and other pathology related to her hernia however this was unlikely given the size of the defect in the fascia which was large and unlikely to result in an episode of incarceration. There was no surrounding erythema there was no significant pain and when the patient was placed upright again there was no recurrence, and patient was counseled on the indication to continue with abdominal binder going forward. Conclusion/Plan - Diagnosis Diagnosis: Superobesity. Multiple comorbid states. Gastroenteritis. Umbilical hernia, reduced. No evidence of bowel obstruction at this time - Plan Plan: 1. With regard to the patient's umbilical hernia, this was reduced, the patient was advised of what to look for going forward as it relates to worrisome symptoms. She was counseled as to how to reduce in the setting of herniation, to continue using abdominal binder, and adjuncts to that end. Patient was counseled that weight loss would be essential towards successful repair and she should follow-up with her bariatric surgeon regarding timing of her staged intervention. There was no indication to proceed with any intervention at this time as there was no evidence of incarceration/strangulation, hernia was freely reducible, and this is a large defect for which the likelihood of long-term complication with proper management would be low. 2. With regard to the gastroenteritis, would advise repeating stool studies and follow-up to assure there is no concern for colitis in this patient. Also would careers counsellor although absent any evidence of findings for inflammatory changes of the colon that the patient undergo upper and lower endoscopy prior to any operative intervention which would be routine preoperative work-up. 3. Patient was counseled that should there be any worrisome symptoms or concerns to return to the emergency room. 4. This was all explained to Dr. Reyes as well as the above management plan. - Lab Results Fish Bones: 04/17/20 16:10 04/17/20 16:10
[2020-04-17] MEDS ORDERED: ONDANSETRON 4 MG/2 ML VIAL IVP STA (21:07)
[2020-04-17 21:24] VITALS: BP 151/77
== END 2020-04-17 21:32 | disposition home or self-care (01) ==
LOC: ED 15:26
DX: K42.9 Umbilical hernia without obstruction or gangrene (principal); K52.9 Noninfective gastroenteritis and colitis, unspecified; E66.9 Obesity, unspecified; Z68.43 Body mass index [BMI] 50.0-59.9, adult; I10 Essential (primary) hypertension; E11.9 Type 2 diabetes mellitus without complications; Z79.4 Long term (current) use of insulin
CPT/HCPCS: 36415; 74177; 80053; 81003; 83690; 85025; 96361; 96374; 96375; 99284; A9270; Q9967; 81001; 87086

== ENCOUNTER 2020-04-19 11:23 | Observation (INO) | payer OTHER ==
--- NOTE | 2020-04-19 11:58 | ED Physician Documentation ---
PD HPI ABD PAIN - Stated complaint Stated Complaint: ABD PAIN - Chief complaint Chief Complaint: Abd Pain - History obtained from History obtained from: Patient - History of Present Illness Timing - onset: How many days ago (6) Timing - duration: Days (6) Timing - details: Gradual onset, Still present Quality: Sharp, Pain Location: Periumbilical Improved by: Laying still Worsened by: Moving, Breathing, Position, Palpation Associated symptoms: Nausea, Vomiting Similar symptoms before: Diagnosis (umbilical hernia) Recently seen: Emergency Dept - Additional information Additional information: 59-year-old super obese female has a umbilical hernia that she has had for more than 40 years and she has not generally had a problem with it. 6 days ago she developed abdominal pain had a partial obstruction associated with the incarcerated umbilical hernia and Dr. Edward Bautista was able to reduce the hernia and the patient was placed into an abdominal binder. She states that despite the use of the binder the hernia continues to pop out and cause her pain. She has had pain and vomiting and symptoms have been present for 1 week Review of Systems Constitutional: denies: Fever Eyes: denies: Decreased vision Ears: denies: Ear pain Nose: denies: Rhinorrhea / runny nose, Congestion Throat: denies: Sore throat Cardiac: denies: Chest pain / pressure, Palpitations Respiratory: denies: Dyspnea, Cough GI: reports: Abdominal Pain, Nausea, Vomiting, Diarrhea : denies: Dysuria, Frequency Skin: denies: Rash Musculoskeletal: denies: Neck pain, Back pain, Extremity pain Neurologic: reports: Generalized weakness. denies: Focal weakness, Numbness PD PAST MEDICAL HISTORY - Past Medical History Cardiovascular: Hypertension, High cholesterol, Coronary artery disease Respiratory: Sleep apnea Endocrine/Autoimmune: Type 2 diabetes GI: None INDUSTRIAL NURSE: None : Chronic bladder infection Psych: Depression Musculoskeletal: Chronic back pain Derm: None - Past Surgical History Past Surgical History: Yes General: Cholecystectomy Ortho: Other HEENT: Tonsil/Adenoidectomy - Present Medications Home Medications: Ambulatory Orders Medication Instructions Recorded Confirmed Diazepam [Valium] 10 mg PO Q8H PRN 05/15/16 05/15/16 Estradiol [Estrace] 42.5 gm VG DAILY 05/15/16 05/15/16 Glipizide [Glipizide Xl] 2 tab PO BID 05/15/16 05/15/16 Insulin Aspart [Novolog Flexpen] SQ TID 05/15/16 Insulin Glargine,Hum.rec.anlog 56 units SQ DAILY PM 05/15/16 05/15/16 [Lantus] Losartan [Cozaar] 25 mg PO DAILY 05/15/16 05/15/16 Naproxen [Naprosyn] 500 mg PO BID PRN 05/15/16 05/15/16 Nitrofurantoin Monohyd/M-Cryst 100 mg PO DAILY 05/15/16 05/15/16 [Macrobid 100 mg Capsule] methocarbamoL [Methocarbamol] 500 - 1,000 mg PO QID PRN 05/15/16 05/15/16 Gabapentin 600 mg PO QPM 06/28/19 06/28/19 Montelukast [Singulair] 10 mg ORAL DAILY 06/28/19 06/28/19 Ondansetron Odt [Zofran] 4 mg TL Q6H PRN #10 tablet 06/28/19 Ondansetron [Ondansetron Odt] 8 mg PO QID 06/28/19 06/28/19 Azithromycin [Zithromax] 0 mg PO DAILY #6 tablet 04/17/20 Diphenoxylate/Atropine [Lomotil] 1 each PO QID PRN #16 tablet 04/17/20 Hydrocodone/Acetaminophen [[place] 1 each PO Q6H PRN #10 tablet 04/17/20 5-325 Tablet] Promethazine [Phenergan] 25 mg PO Q6H PRN #20 tab 04/17/20 - Allergies Allergies/Adverse Reactions: Allergies Allergy/AdvReac Type Severity Reaction Status Date / Time fluoxetine HCl * Allergy Unknown Verified 04/17/20 15:37 [From Prozac] latex Allergy Hives Verified 04/17/20 15:37 lisinopril Allergy Unknown Verified 04/17/20 15:37 mercury (elemental) Allergy Unknown Verified 04/17/20 15:37 oxycodone Allergy Unknown Verified 04/17/20 15:37 pertussis vaccine,adsorbed Allergy Unknown Verified 04/17/20 15:37 - Social History Does the pt smoke?: No Smoking Status: Never smoker Does the pt drink ETOH?: Yes Does the pt have substance abuse?: No - Immunizations Immunizations are current?: Yes - POLST Patient has POLST: No PD ED PE NORMAL - Vitals Vital signs reviewed: Yes (hypertensive ) - General General: Alert and oriented X 3, Well developed/nourished, Other (The patient appears to be in pain with national 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 ) - HEENT HEENT: Atraumatic, PERRL, EOMI - Neck Neck: Supple, no meningeal sign, No bony TTP - Cardiac Cardiac: RRR, No murmur - Respiratory Respiratory: No respiratory distress, Clear bilaterally - Abdomen Abdomen: Soft, Other (Morbidly obese abdomen with a central periumbilical hernia that is firm and tender. This is reduced with circumferential pressure and time.) - Back Back: No CVA TTP, No spinal TTP - Derm Derm: Normal color, Warm and dry, No rash - Extremities Extremities: No deformity, No edema, No calf tenderness / cord - Neuro Neuro: Alert and oriented X 3, toolroom clerk 2-12 intact, No motor deficit, No sensory deficit, Normal speech Eye Opening: Spontaneous Motor: Obeys Commands Verbal: Oriented GCS Score: 15 - Psych Psych: Normal mood, Normal affect Results - Vitals Vitals: Vital Signs - 24 hr 04/19/20 04/19/20 04/19/20 11:26 11:39 15:26 Temperature 36.7 C Heart Rate 65 81 78 Respiratory 22 20 16 Rate Blood Pressure 143/62 H 155/67 H 164/75 H O2 Saturation 99 94 100 Oxygen O2 Source Room air - Labs Labs: Laboratory Tests 04/19/20 04/19/20 04/19/20 12:30 12:30 14:18 WBC 8.8 RBC 3.75 L Hgb 11.2 L Hct 36.0 L MCV 96.0 MCH 29.9 MCHC 31.1 L RDW 12.6 Plt Count 237 MPV 10.2 Neut # (Auto) 7.1 H Lymph # (Auto) 1.0 L [place] # (Auto) 0.6 Eos # (Auto) 0.0 Baso # (Auto) 0.0 Absolute Nucleated RBC 0.00 Nucleated RBC % 0.0 Sodium 138 Potassium 3.7 Chloride 106 Carbon Dioxide 24 Anion Gap 8.0 BUN 13 Creatinine 0.7 Estimated GFR (MDRD) 86 L Glucose 158 H Calcium 8.7 Total Bilirubin 0.7 AST 18 ALT 22 Alkaline Phosphatase 49 Total Protein 7.1 Albumin 3.5 Globulin 3.6 Albumin/Globulin Ratio 1.0 Lipase 20 L Urine Color YELLOW Urine Clarity CLEAR Urine pH 5.5 Ur Specific [place] 1.020 Urine Protein NEGATIVE Urine Glucose (UA) NEGATIVE Urine Ketones NEGATIVE Urine Occult Blood NEGATIVE Urine Nitrite NEGATIVE Urine Bilirubin NEGATIVE Urine Urobilinogen 0.2 (NORMAL) Ur Leukocyte Esterase NEGATIVE Ur Microscopic Review NOT INDICATED Urine Culture Comments NOT INDICATED PD MEDICAL DECISION MAKING - ED course Complexity details: reviewed old records, reviewed results, re-evaluated patient, considered differential, d/w patient ED course: 59-year-old morbidly obese female has a longstanding umbilical hernia that has recently become incarcerated and it was reduced she is having repeated incarceration of her hernia she is reducing it continuously and she is having an issue with pain nausea vomiting and relates that she has not had anything to eat or drink for 6 days. She has developed some diarrhea. Here in the emergency department I was able to reduce the hernia with some relief of the pain to the patient but as soon as she stood up to go into the bathroom the hernia came out again and she experienced more pain and nausea associated with this. She has had nearly continuous problem with this for the past week. She is using an abdominal binder without success. Dr. Bautista was consulted and the case returns to the emergency department reevaluates the patient. She is having an issue with recurrent incarceration to an intolerable extent and he has offered to consider laproscopic repair of the umbilical hernia and has advised the patient of a high failure rate. She is wanting to proceed. Departure - Departure Disposition: 66 [facility] DC/Xfer Clinical Impression: Recurrent umbilical hernia with incarceration Condition: Stable
[2020-04-19 12:40] LABS: BASOPHILS % (AUTO) 0.2 %; EOSINOPHILS % (AUTO) 0.2 %; HGB - HEMOGLOBIN 11.2 g/dL (12.0-16.0); LYMPHOCYTES % (AUTO) 11.2 %; MEAN CORPUSCULAR HEMOGLOBIN 29.9 pg (27.0-31.0); MEAN CORPUSCULAR HGB CONC 31.1 g/dL (32.0-36.0); MEAN PLATELET VOLUME 10.2 fL (7.9-10.8); MONOCYTES # (AUTO) 0.6 10^3/uL (0.0-1.0); MONOCYTES % (AUTO) 7.3 %; NEUTROPHILS # (AUTO) 7.1 10^3/uL (1.5-6.6); NEUTROPHILS % (AUTO) 80.8 %; PLT - PLATELET COUNT 237 10^3/uL (130-450); RED BLOOD COUNT 3.75 10^6/uL (4.20-5.40); RED CELL DISTRIBUTION WIDTH 12.6 % (12.0-15.0); WHITE BLOOD COUNT 8.8 x10^3/uL (4.8-10.8)
[2020-04-19 12:53] LABS: ALBUMIN 3.5 g/dL (3.2-5.5); BILIRUBIN,TOTAL 0.7 mg/dL (0.2-1.0); CALCIUM 8.7 mg/dL (8.5-10.3); CREATININE 0.7 mg/dL (0.4-1.0); TOTAL PROTEIN 7.1 g/dL (6.7-8.2)
[2020-04-19] MEDS ORDERED: SODIUM CHLORIDE 0.9% 1,000 ML IV STA (14:19)
[2020-04-19 14:24] LABS: BILIRUBIN,URINE NEGATIVE (NEGATIVE); CLARITY,URINE CLEAR (CLEAR); GLUCOSE, URINE (UA) NEGATIVE (NEGATIVE); KETONES,URINE (UA) NEGATIVE (NEGATIVE); LEUKOCYTE ESTERASE, URINE NEGATIVE (NEGATIVE); NITRITE,URINE NEGATIVE (NEGATIVE); OCCULT BLOOD,URINE NEGATIVE (NEGATIVE); PH,URINE 5.5 PH (5.0-7.5); PROTEIN,URINE NEGATIVE (NEGATIVE); UROBILINOGEN,URINE 0.2 (NORMAL) E.U./dL (NORMAL)
[2020-04-19] MEDS ORDERED: ONDANSETRON 4 MG/2 ML VIAL IVP STA (16:54)
[2020-04-19] MEDS ORDERED: ACETAMINOPHEN 1,000 MG/100 ML 100 ML IV PRN (17:42)
[2020-04-19] MEDS ORDERED: HYDROmorphone 0.5 MG/0.5 ML SYRINGE IVP PRN (17:42)
[2020-04-19] MEDS ORDERED: ONDANSETRON 4 MG/2 ML VIAL IVP PRN (17:42)
--- NOTE | 2020-04-19 18:14 | CONSULTATION NOTE ---
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 She had a cardiac work up as part of the bariatric program at [facility] (she thinks the flake miller helper was a Dr Tijerina(?), She reports an unremarkable echo last year as part of that work up. Denies any diastolic or systolic dysfunction, no Pulmonary HTN, No LVH "it was normal" and that she had an unremarkable treadmill stress. In addition to her morbid obesity, medical history notable for 1)DM2 x 7 years (on insulin and glipizide); she reports most recent A1C 8.9 after insurance necisstated change from Lantus to Basaglar, NO CAD/Denies CAD (ED note notes CAD in hx) 2) RODRIGO on CPAP (has CPAP w/ her), Hypertension (she denies HTN says losartan just for renal protection, Urticaria of unknown primary, Surgical history includes November 2019 cholecystectomy, laparascopic with no complications, intubated, same day surgery , home without extubation difficulty. She has also had LE tendon surgery tonsilectolmy, cervical cone. Re: DM, at work , since insulin cumbersome, sometimes she takes glipizide during the day 10mg rather than insulin Only hypoglycemic if forgets to eat (as nurse) after insuli 40 units History - Past Medical History Cardiovascular: reports: Hypertension, High cholesterol Respiratory: reports: Sleep apnea (ON cpap, HAS IT WITH HER) Endocrine/Autoimmune: reports: Type 2 diabetes GI: reports: None, Other (umbilical hernia for years as per HPI, ) PROSTHODONTIST/EDUCATOR: reports: None : reports: Chronic bladder infection Psych: reports: Depression, Anxiety (takes valium 5-10 mg prn, sometimes need at night) Musculoskeletal: reports: Chronic back pain, Other (has R LE weakness, at times R LE gives out, source not identified, one fall) Derm: reports: None, Other (hx of urticaria of unknown source, is on singulair) MRSA Hx?: No - Past Surgical History General: reports: Cholecystectomy Ortho: reports: Other HEENT: reports: Tonsil/Adenoidectomy - Family & Social History Living arrangement: At home, Other () Living Situation: Alone Social History Notes: works as 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, is ~ 5 years , had myesthenia gravis, lives in [place], Son lives nearby - POLST Patient has POLST: No POLST Status: Full Code Meds/Allgy - Home Medications Home Medications: Ambulatory Orders Medication Instructions Recorded Confirmed Diazepam [Valium] 10 mg PO Q8H PRN 05/15/16 05/15/16 Estradiol [Estrace] 42.5 gm VG DAILY 05/15/16 05/15/16 Glipizide [Glipizide Xl] 2 tab PO BID 05/15/16 05/15/16 Insulin Aspart [Novolog Flexpen] SQ TID 05/15/16 Insulin Glargine,Hum.rec.anlog 56 units SQ DAILY PM 05/15/16 05/15/16 [Lantus] Losartan [Cozaar] 25 mg PO DAILY 05/15/16 05/15/16 Naproxen [Naprosyn] 500 mg PO BID PRN 05/15/16 05/15/16 Nitrofurantoin Monohyd/M-Cryst 100 mg PO DAILY 05/15/16 05/15/16 [Macrobid 100 mg Capsule] methocarbamoL [Methocarbamol] 500 - 1,000 mg PO QID PRN 05/15/16 05/15/16 Gabapentin 600 mg PO QPM 06/28/19 06/28/19 Montelukast [Singulair] 10 mg ORAL DAILY 06/28/19 06/28/19 Ondansetron Odt [Zofran] 4 mg TL Q6H PRN #10 tablet 06/28/19 Ondansetron [Ondansetron Odt] 8 mg PO QID 06/28/19 06/28/19 Azithromycin [Zithromax] 0 mg PO DAILY #6 tablet 04/17/20 Diphenoxylate/Atropine [Lomotil] 1 each PO QID PRN #16 tablet 04/17/20 Hydrocodone/Acetaminophen [[place] 1 each PO Q6H PRN #10 tablet 04/17/20 5-325 Tablet] Promethazine [Phenergan] 25 mg PO Q6H PRN #20 tab 04/17/20 - Allergies Allergies/Adverse Reactions: Allergies Allergy/AdvReac Type Severity Reaction Status Date / Time fluoxetine HCl * Allergy Unknown Verified 04/17/20 15:37 [From Prozac] latex Allergy Hives Verified 04/17/20 15:37 lisinopril Allergy Unknown Verified 04/17/20 15:37 mercury (elemental) Allergy Unknown Verified 04/17/20 15:37 oxycodone Allergy Unknown Verified 04/17/20 15:37 pertussis vaccine,adsorbed Allergy Unknown Verified 04/17/20 15:37 Review of Systems - Constitutional Constitutional: reports: Chills (occasional chills, no associated fevers), Weight loss (intentional loss fro 365-> 347 lbs , planning bariatric surgery). denies: Fever - Genitourinary Genitourinary: reports: Incontinence, Other (overactive bladder, botox in bladder sphicter as was saturating pads) - Musculoskeletal Musculoskeletal: reports: Muscle pain (occasional back pain) - Integumentary Integumentary: reports: Other (as above, urticaria of unknown primary, wheals, none since starting singulair 10 bid) - Psychiatric Psychiatric: reports: Anxiety (takes prn valium 5-10 mg usu at Hs) Exam - Vital Signs Reviewed Vital Signs: Yes Vital Signs: Vital Signs x48h Temp Pulse Resp BP Pulse Ox 04/19/20 17:15 70 18 132/55 H 96 04/19/20 15:26 78 16 164/75 H 100 04/19/20 11:39 81 20 155/67 H 94 04/19/20 11:26 36.7 C 65 22 143/62 H 99 - Physical Exam General Appearance: positive: No acute distress, Alert, Other (Morbidly obese female, alert,animated, lying on stretcher in ED, moves to sitting w/ minimal wincing, nontoxic) Eyes Bilateral: positive: PERRL, EOMI, No scleral icterus ENT: positive: Pharynx nml, Dry mucous membranes, Other (own teeth , adequate dentition) Neck: positive: Other (very full neck, no LESIA appreciable) Respiratory: positive: Chest non-tender, No respiratory distress, Breath sounds nml (somewhat distant BS due to habitus), Other (unlabored, 98 % RA Chest, large breaasts) Cardiovascular: positive: Regular rate & rhythm (distant, no appreciable murmur) Peripheral Pulses: positive: 2+ Abdomen: positive: Other (obese, soft, + BS but hypoactive, umbilical hernia, sl ecchymosis, I did not attempt to reduce, did not do deep palpation to assess for organomegaly) Skin: positive: Warm, Dry Extremities: positive: Other (OBESE lower extremiteis, no appreciable edema currently , hemosiderin staining bilaterally, old scab L gallo) Neurologic/Psychiatric: positive: Oriented x3, CN's nml (2-12), Motor nml, Mood/affect nml Conclusion/Plan - Diagnosis Diagnosis: 1) umbilical hernia; problematic since lap erica this past November. Now with partial obstruction/partially incarcerated umbilical hernia / continues to pop out despite binder, not tolreating PO. Plan for surgical repair tomorrow by Dr Knight, Primary management by surgery Morbid Obesity BMI 61.1 . Patient has had recent intubation/surgery November 2019 which was uneventful despite her RODRIGO and morbid obesity. ~ 1 yr ago as part of her bariatric progam she had cardiac eval see below. Patient written for 40 mg daily lovenox ; needs bariatric dose post op. (requested pharmacy modify ordered dose tomorrow 04/20. 2) DM2 on insulin ; patient on Basaglar 80 u pm/40 u Am. Nonformulary. She had been on lantus 56am/56 pm (~ lantus equivalent). Will give ~ 2/3 of her 56 u lantus dose= 40 units tonight as NPO tomorrow and hasnt eaten/ NV with moderate correctional scale on NPO protocol. Modify as glucose warrants/ qac/hs. Hold glipizide in hospital. Not on statin. On ASA 81 mg daily, resume Post op. 3) RODRIGO on cpap. has with her. If any issues post extubation / consider extubate to cpap (but has not had problems w/ recent general surgery. Hypertension; will hold losartan tonight (usu 25 q hs) given potential interaction w/ anesthesia/ vasodilation. Resume when BP warrants. Recent Hx Urticaria of unknown primary, continue bid singulair 10mg bid (she is anxious that she get this). OAB, and chornic Uti and incontinence; has gotten botox for OAB, Check in am if she istaking nitrofuantoin prophylaxis. Code status Full. Neuropathy; continue home 600 mg q pm gabapentin - Lab Results Fish Bones: 04/19/20 12:30 04/19/20 12:30 - Diagnostic Imaging Results Diagnostic Imaging Results Comments: Old EKG in system 03/23 NSR ~ 60, sl L axis, somewhat low voltage, no ischemic changes , ? old inferior Q's , but per patient no evidence on echo, no hx CAD
[2020-04-19] MEDS: D5NS W/20 MEQ KCL 1,000 ML IV SCH (18:40)
[2020-04-19] MEDS: methocarbamoL 500 MG TABLET PO SCH (19:04)
[2020-04-19] MEDS: PANTOPRAZOLE 40 MG VIAL IVP SCH (19:04)
[2020-04-19] MEDS: METOCLOPRAMIDE 10 MG/2 ML VIAL IVP SCH (19:05)
[2020-04-19] MEDS ORDERED: INSULIN GLARGINE 300 UNIT/3 ML PEN SUBQ SCH (21:00)
[2020-04-19] MEDS: GABAPENTIN 300 MG CAPSULE PO SCH (21:28)
[2020-04-19] MEDS: MONTELUKAST 10 MG TABLET PO SCH (21:28)
[2020-04-20] MEDS: LORazepam 2 MG/ML VIAL IVP PRN (00:15)
[2020-04-20] MEDS: METOCLOPRAMIDE 10 MG/2 ML VIAL IVP SCH ×4 (00:15→18:26)
[2020-04-20] MEDS: methocarbamoL 500 MG TABLET PO SCH ×4 (00:15→18:27)
[2020-04-20] MEDS: SODIUM CHLORIDE FLUSH 0.9% 10 ML SYRINGE IVP SCH ×3 (00:17→15:41)
[2020-04-20] MEDS: INSULIN REGULAR HUMAN 300 UNIT/3 ML VIAL SUBQ SCH ×3 (00:17→15:32)
[2020-04-20] MEDS: D5NS W/20 MEQ KCL 1,000 ML IV SCH ×3 (02:53→17:23)
[2020-04-20] MEDS: PANTOPRAZOLE 40 MG VIAL IVP SCH (05:45)
[2020-04-20] MEDS ORDERED: LIDOCAINE 1%-EPI 1:100000 20 ML MDV ONE (08:03)
[2020-04-20] MEDS ORDERED: BUPIVACAINE 0.5% PF 30 ML VIAL ONE (08:04)
--- NOTE | 2020-04-20 08:34 | ANESTHESIA ---
Pre-Anesthesia VS, & Labs - Diagnosis Diagnosis 1) umbilical hernia; problematic since lap reica this past November. Now with partial obstruction/ partially incarcerated umbilical hernia / continues to pop out despite binder, not tolreating PO Plan for surgical repair tomorrow by Dr Knight, Primary management by surgery Morbid Obesity BMI 61.1 . Patient has had recent intubation/ surgery November 2019 which was uneventful despite her RODRIGO and morbid obesity. ~ 1 yr ago as part of her bariatric progam she had cardiac eval see below. Patient written for 40 mg daily lovenox ; needs bariatric dose post op (requested pharmacy modify ordered dose tomorrow 04/20 2) DM2 on insulin ; patient on Basaglar 80 u pm/ 40 u Am. Nonformulary. She had been on lantus 56am/56 pm (~ lantus equivalent). Will give ~ 2/3 of her 56 u lantus dose= 40 units tonight as NPO tomorrow and hasnt eaten/ NV with moderate correctional scale on NPO protocol Modify as glucose warrants/ qac/hs Hold glipizide in hospital Not on statin On ASA 81 mg daily, resume Post op 3) RODRIGO on cpap has with her If any issues post extubation / consider extubate to cpap (but has not had problems w/ recent general surgery Hypertension; will hold losartan tonight (usu 25 q hs) given potential interaction w/ anesthesia / vasodilation. Resume when BP warrants Recent Hx Urticaria of unknown primary, continue bid singulair 10mg bid (she is anxious that she get this) OAB, and chornic Uti and incontinence; has gotten botox for OAB, Check in am if she istaking nitrofuantoin prophylaxis Code status Full Neuropathy; continue home 600 mg q pm gabapentin - Procedure laparoscopic hernia repair Vital Signs: Temp Pulse Resp BP Pulse Ox 37 C 68 22 143/63 H 97 04/20/20 08:06 04/20/20 08:06 04/20/20 08:06 04/20/20 08:06 04/20/20 08:06 Height 5 ft 5 in Weight (kg) 159 kg Body Mass Index 58.3 - NPO >8 hours - Is Patient ?: No - Lab Results Current Lab Results: Laboratory Tests 04/19/20 12:30: Sodium 138, Potassium 3.7, Chloride 106, Carbon Dioxide 24, Anion Gap 8.0, BUN 13, Creatinine 0.7, Estimated GFR (MDRD) 86 L, Glucose 158 H, Calcium 8.7, Total Bilirubin 0.7, AST 18, ALT 22, Alkaline Phosphatase 49, Total Protein 7.1, Albumin 3.5, Globulin 3.6, Albumin/Globulin Ratio 1.0, Lipase 20 L 04/19/20 12:30: WBC 8.8, RBC 3.75 L, Hgb 11.2 L, Hct 36.0 L, MCV 96.0, MCH 29.9, MCHC 31.1 L, RDW 12.6, Plt Count 237, MPV 10.2, Neut # (Auto) 7.1 H, Lymph # (Auto) 1.0 L, [place] # (Auto) 0.6, Eos # (Auto) 0.0, Baso # (Auto) 0.0, Absolute Nucleated RBC 0.00, Nucleated RBC % 0.0 Fish Bones: 04/19/20 12:30 04/19/20 12:30 Home Medications and Allergies Active Medications Enoxaparin Sodium (Lovenox) 40 mg SUBQ BID GAVIN Gabapentin (Neurontin) 600 mg PO QPM [facility] Last Admin: 04/19/20 21:28 Dose: 600 mg Documented by: Hydromorphone HCl (Dilaudid Inj Syringe) 0.5 mg IVP Q2H PRN PRN Reason: Pain 8 to 10 Potassium Chloride/Dextrose/Sod Cl () 1,000 mls @ 125 mls/hr IV .Q8H GAVIN Last Admin: 04/20/20 02:53 Dose: 125 mls/hr Documented by: Acetaminophen (Ofirmev) 100 mls @ 400 mls/hr IV Q6HR PRN PRN Reason: PAIN Last Infusion: 04/19/20 19:25 Dose: Infused Documented by: Insulin Glargine (Lantus Solostar) 40 unit SUBQ QPM GAVIN Last Admin: 04/20/20 00:16 Dose: 40 unit Documented by: Insulin Human Regular (Humulin R) 1 - 9 unit SUBQ Q6HR [facility]; Protocol Last Admin: 04/20/20 05:56 Dose: Not Given Documented by: Lorazepam (Ativan Inj (Vial)) 1 mg IVP QPM PRN PRN Reason: Anxiety Last Admin: 04/20/20 00:15 Dose: 0.5 mg Documented by: Methocarbamol (Robaxin) 500 mg PO Q6HR [facility] Last Admin: 04/20/20 05:45 Dose: 500 mg Documented by: Metoclopramide HCl (Reglan Inj) 10 mg IVP Q6HR [facility] Last Admin: 04/20/20 05:45 Dose: 10 mg Documented by: Montelukast Sodium (Singulair) 10 mg PO BID [facility] Last Admin: 04/19/20 21:28 Dose: 10 mg Documented by: Ondansetron HCl (Zofran Inj) 4 mg IVP Q6HR PRN PRN Reason: Nausea / Vomiting Pantoprazole Sodium (Protonix) 40 mg IVP QDAC [facility] Last Admin: 04/20/20 05:45 Dose: 40 mg Documented by: Sodium Chloride (Normal Saline Flush 0.9%) 10 ml IVP 0100,0900,1700 [facility] Last Admin: 04/20/20 07:58 Dose: Not Given Documented by: Sodium Chloride (Normal Saline Flush 0.9%) 10 ml IVP PRN PRN PRN Reason: NEEDED PER PROVIDER ORDERS Diazepam [Valium] 10 mg PO Q8H PRN 05/15/16 Estradiol [Estrace] 42.5 gm VG DAILY 05/15/16 Glipizide [Glipizide Xl] 2 tab PO BID 05/15/16 Insulin Aspart [Novolog Flexpen] SQ TID 05/15/16 Insulin Glargine,Hum.rec.anlog [Lantus] 56 units SQ DAILY PM 05/15/16 Losartan [Cozaar] 25 mg PO DAILY 05/15/16 Naproxen [Naprosyn] 500 mg PO BID PRN 05/15/16 Nitrofurantoin Monohyd/M-Cryst [Macrobid 100 mg Capsule] 100 mg PO DAILY methocarbamoL [Methocarbamol] 500 - 1,000 mg PO QID PRN 05/15/16 Gabapentin 600 mg PO QPM 06/28/19 Montelukast [Singulair] 10 mg ORAL DAILY 06/28/19 Ondansetron [Ondansetron Odt] 8 mg PO QID 06/28/19 Allergies/Adverse Reactions: Allergies Allergy/AdvReac Type Severity Reaction Status Date / Time fluoxetine HCl * Allergy Unknown Verified 04/17/20 15:37 [From Prozac] latex Allergy Hives Verified 04/17/20 15:37 lisinopril Allergy Unknown Verified 04/17/20 15:37 mercury (elemental) Allergy Unknown Verified 04/17/20 15:37 oxycodone Allergy Unknown Verified 04/17/20 15:37 pertussis vaccine,adsorbed Allergy Unknown Verified 04/17/20 15:37 Anes History & Medical History - Anesthetic History Anesthesia Complications: reports: No previous complications - Medical History Cardiovascular: reports: Hypertension, High cholesterol Pulmonary: reports: Sleep apnea (ON cpap, HAS IT WITH HER) Gastrointestinal: reports: None, Other (umbilical hernia for years as per HPI, ) Urinary: reports: Chronic bladder infection Neuro: reports: None Musculoskeletal: reports: Chronic back pain, Other (has R LE weakness, at times R LE gives out, source not identified, one fall) Endocrine/Autoimmune: reports: Type 2 diabetes Skin: reports: None, Other (hx of urticaria of unknown source, is on singulair) Smoking Status: Former smoker (quit 1989) Psychosocial: reports: Anxiety - Surgical History General: Cholecystectomy Eyes Ears Nose Throat (EENT): Tonsil/Adenoidectomy Orthopedic: Other Exam General: Alert, Oriented x3, Cooperative, No acute distress Dental: WNL Mouth Openin Fingerbreadth Neck Mobility: Normal Mallampati classification: III Thyromental Distance: 4-6 cm Respiratory: Lungs clear, Normal breath sounds, No respiratory distress, No accessory muscle use Cardiovascular: Regular rate, Normal S1, Normal S2, No murmurs Mental/Cognitive Status: Alert/Oriented X3, Normal for patient Plan Anesthesia Type: General Consent for Procedure(s) Verified and Reviewed: Yes Code Status: Attempt Resuscitation ASA classification: 3-Severe systemic disease Is this case an emergency?: No
[2020-04-20] MEDS ORDERED: ROCURONIUM 50 MG/5 ML VIAL IVP ONE (09:40)
[2020-04-20] MEDS ORDERED: PROPOFOL 200 MG/20 ML VIAL IVP ONE (09:40)
[2020-04-20] MEDS ORDERED: fentaNYL 100 MCG/2 ML VIAL IVP ONE (09:40)
[2020-04-20] MEDS ORDERED: HYDROmorphone 1 MG/ML CARPUJECT IVP ONE (09:40)
[2020-04-20] MEDS ORDERED: ACETAMINOPHEN 1,000 MG/100 ML 100 ML IV ONE (09:40)
[2020-04-20] MEDS ORDERED: SUCCINYLCHOLINE 200 MG/10 ML VIAL IVP ONE (09:40)
[2020-04-20] MEDS ORDERED: KETOROLAC 30 MG/ML VIAL IVP ONE (09:40)
[2020-04-20] MEDS ORDERED: ONDANSETRON 4 MG/2 ML VIAL IVP ONE (09:40)
--- NOTE | 2020-04-20 09:47 | SURGERY HX AND PHYSICAL(T) ---
Surgical History & Physical - Chief Complaint/HPI Chief Complaint: Incarcerated umbilical hernia, recurrent History of Present Illness: 59-year-old female with super obesity and BMI of 58 who presents for second time in a single week with abdominal pain, obstruction, and recurrent incarceration, she was unable to self reduce, of her large umbilical hernia. She was seen several days ago at which time I was able to successfully reduce her umbilical hernia without any complication she was discharged with abdominal binder and strict instructions as far as avoiding any heavy lifting pushing or pulling and education as a relates to self reduction of her known umbilical hernia. She had been worked up extensively at outside facility in preparation for recent cholecystectomy. She had been planned for bariatric surgery with recommended weight loss towards umbilical hernia repair with optimal long-term risk reduction of recurrence. She was advised this at the time of her consultation several days prior, however she returns with recurrent symptoms of nausea, abdominal pain, recurrent i ncarceration, as well as loose stool. She had reportedly undergone stool studies however these are still unknown. No recent sick contacts by report. She is active and understands the risks of proceeding with urgent operative intervention. Hospitalist consultation was obtained as well. - PMH/PSH/Social Hx Does the pt have a hx of MRSA?: No Neurological History: None Cardiovascular: Hypertension, High cholesterol Respiratory: Sleep apnea (ON cpap, HAS IT WITH HER) Skin: None, Other (hx of urticaria of unknown source, is on singulair) Endocrine/Autoimmune: Type 2 diabetes Gastrointestinal: None, Other (umbilical hernia for years as per HPI, ) STATISTICAL ANALYST: None Is Patient ?: No Urinary: Chronic bladder infection Musculoskeletal: Chronic back pain, Other (has R LE weakness, at times R LE gives out, source not identified, one fall) Psychiatric: Depression, Anxiety (takes valium 5-10 mg prn, sometimes need at night) General: Cholecystectomy Orthopedic: Other Eyes Ears Nose Throat (EENT): Tonsil/Adenoidectomy Smoking Status: Former smoker (quit 1989) Does the pt drink ETOH?: Yes Frequency: Occasional Does the pt have substance abuse?: No - Home Meds and Allergies Home Medications: Diazepam [Valium] 10 mg PO Q8H PRN 05/15/16 Estradiol [Estrace] 42.5 gm VG DAILY 05/15/16 Glipizide [Glipizide Xl] 2 tab PO BID 05/15/16 Insulin Aspart [Novolog Flexpen] SQ TID 05/15/16 Insulin Glargine,Hum.rec.anlog [Lantus] 56 units SQ DAILY PM 05/15/16 Losartan [Cozaar] 25 mg PO DAILY 05/15/16 Naproxen [Naprosyn] 500 mg PO BID PRN 05/15/16 Nitrofurantoin Monohyd/M-Cryst [Macrobid 100 mg Capsule] 100 mg PO DAILY 05/15/16 methocarbamoL [Methocarbamol] 500 - 1,000 mg PO QID PRN 05/15/16 Gabapentin 600 mg PO QPM 06/28/19 Montelukast [Singulair] 10 mg ORAL DAILY 06/28/19 Ondansetron [Ondansetron Odt] 8 mg PO QID 06/28/19 Allergies/Adverse Reactions: Allergies Allergy/AdvReac Type Severity Reaction Status Date / Time fluoxetine HCl * Allergy Unknown Verified 04/17/20 15:37 [From Prozac] latex Allergy Hives Verified 04/17/20 15:37 lisinopril Allergy Unknown Verified 04/17/20 15:37 mercury (elemental) Allergy Unknown Verified 04/17/20 15:37 oxycodone Allergy Unknown Verified 04/17/20 15:37 pertussis vaccine,adsorbed Allergy Unknown Verified 04/17/20 15:37 - Review of Systems Constitutional: Fatigue, Weakness, Poor appetite, Weight loss HEENT: No: Dysphasia, Sore throat Cardiac: HTN. No: AFIB, ID Respiratory: No: Shortness of breath, Cough Gastrointestinal: Nausea, Vomiting, Abdominal pain, Diarrhea. No: Hematochechezia Neurological: No: Dizziness, Syncope - Vital Signs Heart Rate: 70 Blood Pressure: 132/55 Temperature: 37 C Respiratory Rate: 22 O2 Saturation: 97 Weight (kg): 159 kg Height: 1.65 m - Physical Exam General Appearance: positive: No acute distress, Other (Obese female, appears slightly older than stated age, well kept and pleasant.) Eyes Bilatera: positive: Normal inspection, PERRL, EOMI ENT: positive: ENT inspection nml Neck: positive: Nml inspection Respiratory: positive: Chest non-tender, No respiratory distress, Breath sounds nml. negative: Wheezes, Rales, Rhonchi Cardiovascular: positive: Regular rate & rhythm Abdomen: positive: Tenderness, Other (Distended with large umbilical defect approximately 4 cm, positive tenderness to palpation, no rebound no guarding, no erythema no other concerning features, reducible with careful gentle pressure however subjectively with discomfort.). negative: Guarding, Rebound Back: positive: Nml inspection Extremities: positive: Non-tender, Full ROM, Nml appearance Neurologic/Psychiatric: positive: Oriented x3, CN's nml (2-12), Motor nml, Sensation nml - Patient Review Patient Review: Problems were reviewed with the patient during this visit. Medications were reviewed with the patient during this visit. Allergies were reviewed this patient during this visit. Pertinent Tests Reviewed: All pertitent test for this patient were reviewed. - Assessment & Plan Assessment and Plan: 59 year old super obese female, BMI 58.3, with multiple co-morbid states, who is here recurrent partial obstruction/incarcerated umbilical hernia, intolerant of po intake. Seen several days prior through emergency room with similar episode and has failed outpatient nonoperative management with abdominal binder with hopes that she can achieve further weight loss prior to optimal elective intervention. Patient has had recent Laparoscopic cholecystectomy surgery November 2019 which was uneventful despite her RODRIGO and morbid obesity. Cardiac evaluation 1 yr ago as part of her bariatric program. Patient asked whether she could be transferred for further care, however she was reluctant and eager to have this addressed immediately given how significant it has been affecting her life. In addition to her obesity, medical history notable for DM2 x 7 years (on insulin and glipizide); RODRIGO on CPAP (has CPAP w/ her), Hypertension, Urticaria of unknown primary. Surgical history includes November 2019 cholecystectomy, laparascopic with no complications, intubated, same day surgery. She has also had LE tendon surgery tonsillectomy, cervical cone. Given the recurrence of her presentation and the acuity of her symptoms concern of strangulation in the short-term is real. Patient has been advised on recent admission of how to address this hernia in anticipation of additional weight loss towards optimizing recurrence reduction and enhancing outcome, however patient returns in short interval with similar complaints. She also has ongoing diarrheal illness for which we have no definitive cause however stool studies sent and pending. She understands the risk of surgical intervention, see below, and specifically as a relates to this operative intervention with the significant concern of long-term recurrence. She understands that in order to achieve optimal long- term benefit a synthetic mesh would necessarily be used and this could interfere with future operative intervention as a simple primary repair could potentially be exacerbated with short term failure and the possibility of a complex defect that as a consequence could present with a higher incidence of incarceration in the interim. She was also counseled that she would need to remain in the hospital until resumption of bowel function, tolerance of oral analgesia, and stable from a medical standpoint. We discussed this also with the hospitalist service, the anesthesia service, the operative staff, amongst others prior to considering undertaking this patient's care. Patient was advised of risks as a relates to surgery including but not limited to, anastomotic leak, in the setting of resection, injury to local structures including the ureter and nerves, possible conversion to open intervention, need for additional surgeries, as well as the development of postoperative surgical site hernias and infection. Moreover, there were the anesthesia and operative risks of heart attack, stroke, . Plan is as follows: 1. Admit n.p.o. IV fluids bowel rest. 2. Hospitalist consultation for a preoperative risk assessment and medical optimization as necessary 3. Plan laparoscopic-assisted umbilical hernia repair with intraperitoneal onlay mesh for reinforcement and primary fascial repair 4. Opiate sparing analgesia perioperatively.
[2020-04-20] MEDS: MONTELUKAST 10 MG TABLET PO SCH ×2 (09:53→21:51)
[2020-04-20] MEDS ORDERED: ceFAZolin 1 GM VIAL IV ONE (10:15)
[2020-04-20] MEDS ORDERED: BUPIVACAINE 0.5% PF 30 ML VIAL INFIL ONE ×2 (11:02→12:00)
[2020-04-20] MEDS ORDERED: LIDOCAINE 1%-EPI 1:100000 20 ML MDV SUBQ ONE ×2 (11:03→12:00)
[2020-04-20] MEDS ORDERED: HYDROmorphone 0.5 MG/0.5 ML SYRINGE IVP PRN (11:24)
[2020-04-20] MEDS ORDERED: ONDANSETRON 4 MG/2 ML VIAL IVP PRN (11:24)
[2020-04-20] MEDS ORDERED: MORPHINE 2 MG/ML CARPUJECT IVP PRN (11:24)
[2020-04-20] MEDS ORDERED: fentaNYL 100 MCG/2 ML VIAL IVP PRN (11:24)
[2020-04-20] MEDS ORDERED: ATROPINE ABBOJECT 1 MG/10 ML SYRINGE IVP PRN (11:24)
[2020-04-20] MEDS ORDERED: NALOXONE 0.4 MG/ML VIAL IVP PRN (11:24)
[2020-04-20] MEDS ORDERED: SUGAMMADEX 500 MG/5 ML VIAL IVP ONE (11:38)
[2020-04-20] MEDS ORDERED: LACTATED RINGERS 1,000 ML IV SCH (12:00)
[2020-04-20] MEDS ORDERED: LACTATED RINGERS 1,000 ML IV ONE (12:19)
[2020-04-20] MEDS ORDERED: ONDANSETRON 4 MG/2 ML VIAL ONE (12:39)
--- NOTE | 2020-04-20 13:07 | ANESTHESIA POST OP EVALUATION ---
Anesthesia Post Eval - Post Anesthesia Eval Vitals: Last Vital Signs Temp 36.8 C 04/20/20 12:40 Pulse 79 04/20/20 12:40 Resp 16 04/20/20 12:40 BP 146/67 H 04/20/20 12:40 Pulse Ox 93 04/20/20 12:40 CV Function Including HR & BP: positive: Stable Pain Control: positive: Satisfactory Nausea & Vomiting: positive: Negative Mental Status: positive: Baseline Respiratory Status: Airway Patent (2L NC) Hydration Status: Satisfactory Anesthesia Complications: positive: None
--- NOTE | 2020-04-20 13:32 | OPERATIVE REPORT ---
Operative Report - General Admit Date: 04/19/20 Planned Procedure: 1. Diagnostic laparoscopy 2. Laparoscopic adhesio lysis 3. Laparoscopic assisted complex ventral hernia. 4. Laparoscopic-assisted intraperitoneal onlay mesh/IPOM Pre-Op Diagnosis: Incarcerated hernia, failure to thrive, bowel obstruction, super obesity Procedure Performed: 1. Diagnostic laparoscopy 2. Laparoscopic adhesiolysis 3. Laparoscopic assisted complex ventral hernia. 4. Laparoscopic-assisted intraperitoneal onlay mesh/IPOM 5. Umbilical plasty 6. Partial omentectomy 7. Drain placement Post Op Diagnosis: Same; no strangulated bowel, ischemia, or other complication - Procedure Note Primary Surgeon: Eugene Anesthesia Provider: Abdoulaye Zacarias Anesthesia Technique: General ET tube, Local Pathology: 1. Omentum 2. Hernia sac Estimated Blood Loss (mL): 25 Drain/Tube Type: Bahman drain, Other (Bahman drain within the soft tissue to prevent seroma.) Indications: 59 year old super obese female, BMI 58.3, with multiple co-morbid states, who is here with recurrent partial obstruction/incarcerated umbilical hernia, intolerant of po intake. Seen several days prior through emergency room with similar episode and has failed outpatient nonoperative management with abdominal binder with hopes that she can achieve further weight loss prior to optimal elective intervention. Interestingly this is the patient's third hospital trip within the last week for her symptomatic umbilical hernia. Patient has had recent Laparoscopic cholecystectomy surgery November 2019 which was uneventful despite her RODRIGO and morbid obesity. Cardiac evaluation 1 yr ago as part of her bariatric program. Patient asked whether she could be transferred for further care, however she was reluctant and eager to have this addressed immediately given how significant it has been affecting her life with three recent ED evaluations and how significantly it has affected her life. In addition to her obesity, medical history notable for DM2 x 7 years (on insulin and glipizide); RODRIGO on CPAP (has CPAP w/ her), Hypertension, Urticaria of unknown primary. Surgical history includes November 2019 cholecystectomy, laparascopic with no complications, intubated, same day surgery. She has also had LE tendon surgery tonsillectomy, cervical cone. Given the recurrence of her presentation and the acuity of her symptoms, concern of strangulation in short-term is real. Patient has been advised on recent admission of how to address hernia in anticipation of additional weight loss towards optimizing recurrence reduction and enhancing outcome, however patient has multiply returned in short interval with similar complaints. She also has ongoing diarrheal illness for which we have no definitive cause however stool studies sent and pending - this could be a consequence of chronic partial obstruction from umbilical herniation. She understands the risk of surgical intervention, see below, and specifically as a relates to this operative intervention with the significant concern of long-term recurrence. She understands that in order to achieve optimal long- term benefit a synthetic mesh would necessarily be used and this could interfere with future operative intervention as a simple primary repair could potentially be exacerbated with short term failure and the possibility of a complex defect that as a consequence could present with a higher incidence of incarceration in the interim. She was also counseled that she would need to remain in the hospital until resumption of bowel function, tolerance of oral analgesia, and stable from a medical standpoint. We discussed this also with the hospitalist service, the anesthesia service, the operative staff, amongst others prior to considering undertaking this patient's care. Patient was advised of risks as a relates to surgery including but not limited to, anastomotic leak, in the setting of resection, injury to local structures including the ureter and nerves, possible conversion to open intervention, need for additional surgeries, as well as the development of postoperative surgical site hernias and infection. Moreover, there were the anesthesia and operative risks of heart attack, stroke, . Again given the urgency of the patient's presentation, the frequency of her recurrence of obstructive symptoms and herniation with incarceration, although larger defect, it behooves us to proceed with operative intervention. Findings: 1. Incarcerated omentum 2. No evidence of incarcerated small bowel on evaluation, spontaneous reduction during induction, small bowel run its entirety with no evidence of ischemia or other complication including the absence of stenosis amongst others. 3. Large hernia sac status post resection 4. Primary repair with intraperitoneal onlay mesh repair/bridge with laparoscopic assistance 5. Bard ventral light echo system ST mesh 15 cm x 20 cm placed in a IPOM fashion Complications: None. - Other Other Information/Narrative: After obtaining informed consent, the patient is brought to the operating room and placed in the supine position on the operating table. Following successful induction of general anesthesia, appropriate padding of all bony prominences, and placement of appropriate monitors, the abdomen was prepped and draped in the standard surgical fashion. A timeout was held per scope protocol. All elements of the surgical safety checklist were followed before, during, and after the procedure. Following infiltration with local anesthetic to create a field block, an incision was created directly over the umbilicus and carried through the skin and subcutaneous tissue to reveal the hernia sac below. This was a large hernia sac which was dissected free from the surrounding skin and subcutaneous tissues carefully without any hollow viscus injury. A large portion of the omentum was incarcerated within this defect which was not appreciated on CT imaging or physical exam. The small bowel that had been seen appeared to have been and remained reduced or likely spontaneously reduced on induction. Extensive open adhesio lysis was undertaken at this time through the umbilical fascial defect. The omentum which was significantly scarred from chronic incarceration after having been lysed extensively with Bovie electrocautery from the surrounding hernia defect and hernia sac was felt appropriate for partial omentectomy which was performed as follows. Several clamps were used to divide the omentum in a clamp-clamp cut and tie fashion. This was hemostatic. The omentum was reduced without any complication. At this time, we further dissected any remnant of the hernia sac and ultimately passed this off as independent specimen for pathology together with the omentum which was also sent separately as well. After dissecting the fascia free from its surrounding skin and subcutaneous tissue towards assuring a favorable primary closure we proceeded to size the defect and placed under direct palpation a left upper extremity 150 mm length 5 mm laparoscopic trocar. The defect was approximately 4 to 5 cm x 5 to 6 cm and was closed vertically with multiple [id number] of #1 PDS. Prior to definitive closure and mesh was chosen from the [employer] family of products ST with Seprafilm covering/coating echo ventral light synthetic 15 cm x 20 cm. This oval mesh was rolled and inserted into the hernia defect prior to definitive closure. Ultimately approximately 6 [id number] of #1 PDS were used to close this defect with the scaffold suture secured outside on a Blanca clamp. The abdomen was then insufflated to 15 mmHg pressure through the left upper extremity 5 mm bariatric trocar. Additional trocars were placed as follows: 1. Left lower extremity 150 mm / 5 mm diameter bariatric trocar 2. Right upper extremity 150 mm / 5 mm diameter bariatric trocar 3. Right lower extremity 150 mm / 5 mm diameter bariatric trocar All trocars were placed under direct laparoscopic visualization. The mesh was straightened and flattened in the abdominal cavity up against the abdominal wall. There was good apposition after the scaffold suture was pulled taut against the anterior abdominal wall of the mesh which was organ oriented appropriately with the coding facing intra-abdominal. At this time we proceeded to affix the mesh using approximate 2 loads of 30 absorbable tacks which was facilitated using the ER reticulating feature of the device. This was performed sequentially through all 4 trocars in a 360-degree fashion. The mesh was examined once again, and the mesh was documented by photography showing that it was clearly lying flat anteriorly against the abdominal wall. Pictures were taken of the mesh. The abdomen was then checked for hemostasis. Small bowel was run without any concern for any occult pathology especially given historic recurrent incarceration. The bilateral lower quadrants trocars were closed under direct laparoscopic vision with a Joe-Sourav suture passer. We thereafter desufflated the abdomen after having first remove the scaffold device under right laparoscopic visualization through 1 of the lower quadrant trocars before closure. The abdomen was desufflated bilaterally from the upper quadrant trocar which were removed thereafter without any complication. All trocar sites were closed with skin elin and performed for local blocks with local anesthetic. We proceeded to perform umbilicoplasty and the umbilicus was reconstructed using 0 Vicryl and 3-0 Vicryl suture. A #10 Bahman drain was placed in this large defect towards preventing Seroma formation and this drain was brought from the umbilical skin subcutaneous tissue through the right lower quadrant skin and subcutaneous fat of the right lower quadrant 5 mm trocar site. It was secured in place with 2-0 nylon. All sites were dressed in Tegaderm and Telfa. Patient tolerated procedure well which was no complication. All counts for sponges, needles, and instrument were correct at the conclusion of the case. The patient was allowed to wake from anesthesia without difficulty.
[2020-04-20] MEDS ORDERED: oxyCODONE 5 MG TABLET PO PRN (13:34)
[2020-04-20] MEDS ORDERED: ALBUTEROL NEB 2.5 MG/3 ML INH PRN (13:36)
[2020-04-20] MEDS: ACETAMINOPHEN 1,000 MG/100 ML 100 ML IV SCH ×2 (15:40→19:45)
[2020-04-20] MEDS: KETOROLAC 30 MG/ML VIAL IVP PRN ×2 (15:41→21:51)
[2020-04-20] MEDS: IPRATROPIUM 0.2 MG/ML NEB INH SCH ×2 (17:07→17:48)
--- NOTE | 2020-04-20 17:36 | PROVIDER PROGRESS NOTE ---
Assessment/Plan - Problem List (1) Recurrent umbilical hernia with incarceration Assessment/Plan: She went in for surgical management of the umbilical hernia with incarceration this morning and had successful course. Continue postop management as per the surgeon including pain control and advancing her diet. Follow CBC daily. (2) Diarrhea Assessment/Plan: There was explosive diarrhea preop. Postop there has been no further BMs yet. If there are stools, they are ordered for C. difficile and bacterial cultures. Continue with gentle hydration. (3) Diabetes Assessment/Plan: A full liquid diet has been started postop. No labs were done today. CMP is pending for tomorrow. We will plan to resume her insulin coverage plus a sliding scale insulin when she is eating. (4) RODRIGO on CPAP Assessment/Plan: Postop, respiratory therapist put her on her CPAP but she was desaturating breathing room air. She may need supplemental oxygen for period of time. Continue with using her CPAP while here at night (5) Anxiety and depression Assessment/Plan: Patient states she takes Valium either 5 or 10 mg daily. Continue with some benzodiazepine so she does not have withdrawal. - Current Meds Current Meds: Current Medications Generic Name Dose Route Start Last Admin Trade Name Freq PRN Reason Stop Dose Admin Gabapentin 600 mg 04/19/20 21:00 04/19/20 21:28 Neurontin PO 600 mg QPM GAVIN Administration Potassium Chloride/Dextrose/Sod Cl 1,000 mls @ 125 mls/hr 04/19/20 18:00 04/20/20 17:23 IV 125 mls/hr .Q8H GAVIN Administration Acetaminophen 100 mls @ 400 mls/hr 04/19/20 17:42 04/19/20 19:25 Ofirmev IV Infused Q6HR PRN Infusion PAIN Acetaminophen 100 mls @ 400 mls/hr 04/20/20 14:00 04/20/20 15:55 Ofirmev IV 04/21/20 06:14 Infused Q6HR GAVIN Infusion Insulin Glargine 40 unit 04/19/20 21:00 04/20/20 00:16 Lantus Solostar SUBQ 40 unit QPM GAVIN Administration Insulin Human Regular 1 - 9 unit 04/20/20 00:00 04/20/20 15:32 Humulin R SUBQ Not Given Q6HR GAVIN Protocol Ipratropium [place] 0.5 mg 04/20/20 15:00 04/20/20 17:07 Atrovent INH Not Given RTQ4H GAVIN Ketorolac Tromethamine 30 mg 04/20/20 13:34 04/20/20 15:41 Toradol Inj (30mg) IVP 04/25/20 13:33 30 mg Q6HR PRN Administration PAIN Lorazepam 1 mg 04/19/20 18:57 04/20/20 00:15 Ativan Inj (Vial) IVP 0.5 mg QPM PRN Administration Anxiety Methocarbamol 500 mg 04/19/20 18:00 04/20/20 15:30 Robaxin PO Not Given Q6HR GAVIN Metoclopramide HCl 10 mg 04/19/20 18:00 04/20/20 15:32 Reglan Inj IVP Not Given Q6HR GAVIN Montelukast Sodium 10 mg 04/19/20 21:00 04/20/20 09:53 Singulair PO Not Given BID GAVIN Pantoprazole Sodium 40 mg 04/19/20 18:00 04/20/20 05:45 Protonix IVP 40 mg QDAC GAVIN Administration Sodium Chloride 10 ml 04/20/20 01:00 04/20/20 15:41 Normal Saline Flush 0.9% IVP 10 ml 0100,0900,1700 GAVIN Administration - Lab Result Fish Bone Diagrams: 04/19/20 12:30 04/19/20 12:30 - Additional Planning My Orders: My Active Orders 04/20/20 C DIFF PCR Urgent CULTURE, STOOL [RM] Urgent Subjective - Subjective Patient Reports: Resting Comfortably Objective Vital Signs: Vital Signs - 24 hr 04/19/20 04/19/20 04/20/20 18:50 20:33 00:10 Temperature 36.8 C 37.0 C 36.7 C Heart Rate Heart Rate [ 77 77 76 Brachial] Respiratory 20 18 18 Rate Blood Pressure Blood Pressure 141/64 H 142/72 H 120/64 [Right Radial artery] O2 Saturation 98 95 96 04/20/20 04/20/20 04/20/20 05:00 08:06 10:09 Temperature 36.9 C 37 C 37 C Heart Rate 70 Heart Rate [ 69 68 Brachial] Respiratory 18 22 22 Rate Blood Pressure 132/55 H Blood Pressure 123/64 143/63 H [Right Radial artery] O2 Saturation 97 97 97 04/20/20 04/20/20 04/20/20 12:15 12:20 12:25 Temperature 37.1 C 37.1 C 37.1 C Heart Rate 94 85 85 Heart Rate [ Brachial] Respiratory 20 23 21 Rate Blood Pressure 174/76 H 167/83 H 163/72 H Blood Pressure [Right Radial artery] O2 Saturation 100 97 96 04/20/20 04/20/20 04/20/20 12:30 12:40 13:00 Temperature 37.1 C 36.8 C 36.5 C Heart Rate 84 79 Heart Rate [ 72 Brachial] Respiratory 15 16 23 Rate Blood Pressure 147/70 H 146/67 H Blood Pressure 152/62 H [Right Radial artery] O2 Saturation 94 93 84 L 04/20/20 04/20/20 04/20/20 13:15 13:30 13:45 Temperature Heart Rate Heart Rate [ 76 73 68 Brachial] Respiratory Rate Blood Pressure Blood Pressure 144/66 H 151/66 H 145/62 H [Right Radial artery] O2 Saturation 88 L 90 L 87 L 04/20/20 04/20/20 15:14 16:14 Temperature 36.5 C 36.4 C L Heart Rate Heart Rate [ 76 72 Brachial] Respiratory 20 20 Rate Blood Pressure Blood Pressure 101/71 139/59 H [Right Radial artery] O2 Saturation 96 99 Oxygen O2 Source Nasal cannula I&O (Last 24 Hrs): Intake and Output Totals x24h 04/18/20 04/19/20 04/20/20 23:59 23:59 23:59 Intake Total 1100 2100.000 Output Total 80 Balance 1100 2020.000 General: Alert HEENT: Mucous membr. moist/pink Cardiovascular: Regular rate Respiratory: No respiratory distress - Results Results: Laboratory Results WBC 8.8 x10^3/uL (4.8-10.8) 04/19/20 12:30 RBC 3.75 10^6/uL (4.20-5.40) L 04/19/20 12:30 Hgb 11.2 g/dL (12.0-16.0) L 04/19/20 12:30 Hct 36.0 % (37.0-47.0) L 04/19/20 12:30 MCV 96.0 fL (81.0-99.0) 04/19/20 12:30 MCH 29.9 pg (27.0-31.0) 04/19/20 12:30 MCHC 31.1 g/dL (32.0-36.0) L 04/19/20 12:30 RDW 12.6 % (12.0-15.0) 04/19/20 12:30 Plt Count 237 10^3/uL (130-450) 04/19/20 12:30 MPV 10.2 fL (7.9-10.8) 04/19/20 12:30 Neut # (Auto) 7.1 10^3/uL (1.5-6.6) H 04/19/20 12:30 Lymph # (Auto) 1.0 10^3/uL (1.5-3.5) L 04/19/20 12:30 [place] # (Auto) 0.6 10^3/uL (0.0-1.0) 04/19/20 12:30 Eos # (Auto) 0.0 10^3/uL (0.0-0.7) 04/19/20 12:30 Baso # (Auto) 0.0 10^3/uL (0.0-0.1) 04/19/20 12:30 Absolute Nucleated RBC 0.00 x10^3/uL 04/19/20 12:30 Nucleated RBC % 0.0 /100WBC 04/19/20 12:30 Sodium 138 mmol/L (135-145) 04/19/20 12:30 Potassium 3.7 mmol/L (3.5-5.0) 04/19/20 12:30 Chloride 106 mmol/L (101-111) 04/19/20 12:30 Carbon Dioxide 24 mmol/L (21-32) 04/19/20 12:30 Anion Gap 8.0 (6-13) 04/19/20 12:30 BUN 13 mg/dL (6-20) 04/19/20 12:30 Creatinine 0.7 mg/dL (0.4-1.0) 04/19/20 12:30 Estimated GFR (MDRD) 86 (>89) L 04/19/20 12:30 Glucose 158 mg/dL (70-100) H 04/19/20 12:30 Calcium 8.7 mg/dL (8.5-10.3) 04/19/20 12:30 Total Bilirubin 0.7 mg/dL (0.2-1.0) 04/19/20 12:30 AST 18 IU/L (10-42) 04/19/20 12:30 ALT 22 IU/L (10-60) 04/19/20 12:30 Alkaline Phosphatase 49 IU/L (42-121) 04/19/20 12:30 Total Protein 7.1 g/dL (6.7-8.2) 04/19/20 12:30 Albumin 3.5 g/dL (3.2-5.5) 04/19/20 12:30 Globulin 3.6 g/dL (2.1-4.2) 04/19/20 12:30 Albumin/Globulin Ratio 1.0 (1.0-2.2) 04/19/20 12:30 Lipase 20 U/L (22-51) L 04/19/20 12:30 Urine Color YELLOW 04/19/20 14:18 Urine Clarity CLEAR (CLEAR) 04/19/20 14:18 Urine pH 5.5 PH (5.0-7.5) 04/19/20 14:18 Ur Specific [place] 1.020 (1.002-1.030) 04/19/20 14:18 Urine Protein NEGATIVE mg/dL (NEGATIVE) 04/19/20 14:18 Urine Glucose (UA) NEGATIVE mg/dL (NEGATIVE) 04/19/20 14:18 Urine Ketones NEGATIVE mg/dL (NEGATIVE) 04/19/20 14:18 Urine Occult Blood NEGATIVE (NEGATIVE) 04/19/20 14:18 Urine Nitrite NEGATIVE (NEGATIVE) 04/19/20 14:18 Urine Bilirubin NEGATIVE (NEGATIVE) 04/19/20 14:18 Urine Urobilinogen 0.2 (NORMAL) E.U./dL (NORMAL) 04/19/20 14:18 Ur Leukocyte Esterase NEGATIVE (NEGATIVE) 04/19/20 14:18 Ur Microscopic Review NOT INDICATED 04/19/20 14:18 Urine Culture Comments NOT INDICATED 04/19/20 14:18
[2020-04-20] MEDS ORDERED: DEXTROSE GEL 37.5 GM TUBE PO ONE ×2 (18:17)
[2020-04-20] MEDS: SODIUM CHLORIDE FLUSH 0.9% 10 ML SYRINGE IVP PRN (18:26)
[2020-04-20] MEDS ORDERED: INSULIN GLARGINE 300 UNIT/3 ML PEN SUBQ SCH (21:00)
[2020-04-20] MEDS: ENOXAPARIN 40 MG/0.4 ML SYRINGE SUBQ SCH (21:49)
[2020-04-20] MEDS: INSULIN ASPART 300 UNIT/3 ML PEN SUBQ SCH (21:50)
[2020-04-20] MEDS: GABAPENTIN 300 MG CAPSULE PO SCH (21:50)
[2020-04-21] MEDS: METOCLOPRAMIDE 10 MG/2 ML VIAL IVP SCH ×3 (00:03→12:22)
[2020-04-21] MEDS: LORazepam 2 MG/ML VIAL IVP PRN (00:03)
[2020-04-21] MEDS: methocarbamoL 500 MG TABLET PO SCH ×3 (00:05→12:22)
[2020-04-21] MEDS: ACETAMINOPHEN 1,000 MG/100 ML 100 ML IV SCH ×2 (00:17→06:47)
[2020-04-21] MEDS: SODIUM CHLORIDE FLUSH 0.9% 10 ML SYRINGE IVP SCH ×2 (00:20→10:53)
[2020-04-21] MEDS: D5NS W/20 MEQ KCL 1,000 ML IV SCH (01:42)
[2020-04-21] MEDS: KETOROLAC 30 MG/ML VIAL IVP PRN ×2 (06:34→12:23)
[2020-04-21] MEDS: PANTOPRAZOLE 40 MG VIAL IVP SCH (06:34)
[2020-04-21] MEDS: SODIUM CHLORIDE FLUSH 0.9% 10 ML SYRINGE IVP PRN (06:35)
[2020-04-21 06:47] LABS: BASOPHILS # (AUTO) 0.1 10^3/uL (0.0-0.1); BASOPHILS % (AUTO) 0.7 %; EOSINOPHILS # (AUTO) 0.3 10^3/uL (0.0-0.7); EOSINOPHILS % (AUTO) 4.1 %; HGB - HEMOGLOBIN 10.6 g/dL (12.0-16.0); LYMPHOCYTES # (AUTO) 1.4 10^3/uL (1.5-3.5); LYMPHOCYTES % (AUTO) 18.1 %; MEAN CORPUSCULAR HEMOGLOBIN 29.5 pg (27.0-31.0); MEAN CORPUSCULAR HGB CONC 31.2 g/dL (32.0-36.0); MEAN CORPUSCULAR VOLUME 94.7 fL (81.0-99.0); MEAN PLATELET VOLUME 9.6 fL (7.9-10.8); MONOCYTES # (AUTO) 0.8 10^3/uL (0.0-1.0); MONOCYTES % (AUTO) 11.1 %; NEUTROPHILS % (AUTO) 65.6 %; PLT - PLATELET COUNT 246 10^3/uL (130-450); RED BLOOD COUNT 3.59 10^6/uL (4.20-5.40); RED CELL DISTRIBUTION WIDTH 12.7 % (12.0-15.0); WHITE BLOOD COUNT 7.6 x10^3/uL (4.8-10.8)
[2020-04-21 06:59] LABS: ALBUMIN/GLOBULIN RATIO 0.9 (1.0-2.2); BILIRUBIN,TOTAL 0.8 mg/dL (0.2-1.0); CALCIUM 8.3 mg/dL (8.5-10.3); CREATININE 0.7 mg/dL (0.4-1.0); TOTAL PROTEIN 6.4 g/dL (6.7-8.2)
[2020-04-21] MEDS: IPRATROPIUM 0.2 MG/ML NEB INH SCH ×2 (07:37→13:39)
[2020-04-21] MEDS: MONTELUKAST 10 MG TABLET PO SCH (08:32)
[2020-04-21] MEDS: ENOXAPARIN 40 MG/0.4 ML SYRINGE SUBQ SCH (08:33)
[2020-04-21] MEDS ORDERED: D5NS W/20 MEQ KCL 1,000 ML IV SCH (10:41)
[2020-04-21] MEDS: INSULIN ASPART 300 UNIT/3 ML PEN SUBQ SCH ×2 (10:52→12:28)
[2020-04-21] MEDS ORDERED: POTASSIUM CHLORIDE 20 MEQ/15 ML UDC PO SCH (12:00)
[2020-04-21] MEDS ORDERED: IPRATROPIUM 0.2 MG/ML NEB INH PRN (15:24)
--- NOTE | 2020-04-21 16:32 | Discharge Plan ---
Discharge Plan Problem Reviewed?: Yes Disposition: 06 Home Health Service Condition: Good Prescriptions: RX: methocarbamoL [Robaxin] 500 mg PO Q6HR PRN #30 tablet PRN Reason: Spasms Ondansetron HCl [Zofran] 4 mg PO Q6HR PRN #30 tab PRN Reason: Nausea / Vomiting HYDROcod/ACETAM 5/325 [[place] 5/325] 1 - 2 ea PO Q4H PRN #40 tablet PRN Reason: Pain Diet: Soft Activity Restrictions: Wt Bearing as Tolerated Shower Restrictions: No Driving Restrictions: Yes (No driving while taking narcotics) Instruction Topics: Obstruction Sm Bowel, Hernia Surg, Hernia Repair Laparoscopic Dc Health Concerns: DISCHARGE INSTRUCTIONS TEMPLATE: No heavy lifting, pushing, or pulling. Stairs are allowed, no strenuous/exertional activities. 5-10lbs weight carrying limit (i.e. gallon of milk) If provided, abdominal binder while out of bed and while ambulating. Call or proceed to clinic/ER for fevers, severe pain, nausea, vomiting, inability to pass flatus/stool, bleeding, wound redness/discharge, weakness, excessively loose stool/diarrhea, or for any other reasonably worrisome symptom or concern. Soft diet, no raw vegetables, avoid high fiber foods. Colace 100mg by mouth twice to three times daily while taking narcotic pain medication. If no bowel movement in 24-48hr, may take 17g Miralax in 8oz water twice daily until bowel movement. May shower, no submersive bathing. Follow up in clinic in 2-4 weeks for wound check and staple removal. No driving while taking narcotic pain medications. Follow up with primary care provider and/or medical subspecialist following discharge as well. /[facility] as outpatient. May remove dressings in 24 to 48 hours. Additional Instructions or Follow Up instructions: DISCHARGE INSTRUCTIONS TEMPLATE: No heavy lifting, pushing, or pulling. Stairs are allowed, no strenuous/exertional activities. 5-10lbs weight carrying limit (i.e. gallon of milk) If provided, abdominal binder while out of bed and while ambulating. Call or proceed to clinic/ER for fevers, severe pain, nausea, vomiting, inability to pass flatus/stool, bleeding, wound redness/discharge, weakness, excessively loose stool/diarrhea, or for any other reasonably worrisome symptom or concern. Soft diet, no raw vegetables, avoid high fiber foods. Colace 100mg by mouth twice to three times daily while taking narcotic pain medication. If no bowel movement in 24-48hr, may take 17g Miralax in 8oz water twice daily until bowel movement. May shower, no submersive bathing. Follow up in clinic in 2-4 weeks for wound check and staple removal. No driving while taking narcotic pain medications. Follow up with primary care provider and/or medical subspecialist following discharge as well. [facility] as outpatient. May remove dressings in 24 to 48 hours. No Smoking: If you smoke, Please STOP! Call for help. Follow-up with: CHRIS LING [Primary Care Provider] - 1 Week Rory Patel MD [Provider Admit Priv/Credential] -
--- NOTE | 2020-04-21 16:37 | DISCHARGE SUMMARY ---
"Discharge Summary Admit Date: 04/19/20 Discharge Date: 04/21/20 Discharging Provider: Eugene Primary Care Provider: Dany Code Status: Attempt Resuscitation Condition at Discharge: Good Discharge Disposition: 06 Home Health Service - DIAGNOSES Admission Diagnoses: 1 - Incarcerated hernia 2 - Failure to thrive 3 - Bowel obstruction 4 - Super obesity 5 - Multiple co-morbid states including DM, RODRIGO, amongst others Discharge Diagnoses with Status of Each Condition: 1 - Incarcerated hernia - RESOLVED 2 - Failure to thrive - RESOLVING 3 - Bowel obstruction - RESOLVED 4 - Super obesity - PERSISTS 5 - Multiple co-morbid states including DM, RODRIGO, amongst others - PERSISTS 6 - no strangulated bowel, ischemia, or other complication on Dx Lap - RESOLVED/NO COMPLICATION 7 - Successful Lap assisted hernia repair - RESOLVED/NO COMPLICATION - HPI History of Present Illness: 59-year-old female with super obesity and BMI of 58 who presents for second time in a single week with abdominal pain, obstruction, and recurrent incarceration, she was unable to self reduce, of her large umbilical hernia. She was seen several days ago at which time I was able to successfully reduce her umbilical hernia without any complication she was discharged with abdominal binder and strict instructions as far as avoiding any heavy lifting pushing or pulling and education as a relates to self reduction of her known umbilical hernia. She had been worked up extensively at outside facility in preparation for recent cholecystectomy. She had been planned for bariatric surgery with recommended weight loss towards umbilical hernia repair with optimal long-term risk reduction of recurrence. She was advised this at the time of her consultation several days prior, however she returns with recurrent symptoms of nausea, abdominal pain, recurrent incarceration, as well as loose stool. She had reportedly undergone stool studies however these are still unknown. No recent sick contacts by report. She is active and understands the risks of proceeding with urgent operative intervention. Hospitalist consultation was obtained as well. - CONSULTS | PROCEDURES Consultations: HOSPITALISTS Procedures: 1. Diagnostic laparoscopy 2. Laparoscopic adhesiolysis 3. Laparoscopic assisted complex ventral hernia. 4. Laparoscopic-assisted intraperitoneal onlay mesh/IPOM 5. Umbilical plasty 6. Partial omentectomy 7. Drain placement - HOSPITAL COURSE Hospital Course: 59 year old super obese female, BMI 58.3, with multiple co-morbid states, who is here with recurrent partial obstruction/incarcerated umbilical hernia, intolerant of po intake. Seen several days prior through emergency room with similar episode and has failed outpatient nonoperative management with abdominal binder with hopes that she can achieve further weight loss prior to optimal elective intervention. Interestingly this is the patient's third hospital trip within the last week for her symptomatic umbilical hernia. Patient has had recent Laparoscopic cholecystectomy surgery November 2019 which was uneventful despite her RODRIGO and morbid obesity. Cardiac evaluation 1 yr ago as part of her bariatric program. Patient asked whether she could be transferred for further care, however she was reluctant and eager to have this addressed immediately given how significant it has been affecting her life with three recent ED evaluations and how significantly it has affected her life. In addition to her obesity, medical history notable for DM2 x 7 years (on insulin and glipizide); RODRIGO on CPAP (has CPAP w/ her), Hypertension, Urticaria of unknown primary. Surgical history includes November 2019 cholecystectomy, laparascopic with no complications, intubated, same day surgery. She has also had LE tendon surgery tonsillectomy, cervical cone. Given the recurrence of her presentation and the acuity of her symptoms, concern of strangulation in short-term is real. Patient has been advised on recent admission of how to address hernia in anticipation of additional weight loss towards optimizing recurrence reduction and enhancing outcome, however patient has multiply returned in short interval with similar complaints. She also has ongoing diarrheal illness for which we have no definitive cause however stool studies sent and pending - this could be a consequence of chronic partial obstruction from umbilical herniation. She understands the risk of surgical intervention, see below, and specifically as a relates to this operative intervention with the significant concern of long-term recurrence. She understands that in order to achieve optimal long- term benefit a synthetic mesh would necessarily be used and this could interfere with future operative intervention as a simple primary repair could potentially be exacerbated with short term failure and the possibility of a complex defect t hat as a consequence could present with a higher incidence of incarceration in the interim. She was also counseled that she would need to remain in the hospital until resumption of bowel function, tolerance of oral analgesia, and stable from a medical standpoint. We discussed this also with the hospitalist service, the anesthesia service, the operative staff, amongst others prior to considering undertaking this patient's care. Patient was advised of risks as a relates to surgery including but not limited to, anastomotic leak, in the setting of resection, injury to local structures including the ureter and nerves, possible conversion to open intervention, need for additional surgeries, as well as the development of postoperative surgical site hernias and infection. Moreover, there were the anesthesia and operative risks of heart attack, stroke, . Again given the urgency of the patient's presentation, the frequency of her recurrence of obstructive symptoms and herniation with incarceration, although larger defect, it behooves us to proceed with operative intervention. Patient underwent operative intervention as listed in the electronic medical record. Tolerated procedure well for which there was no complication. Patient did exceedingly well postoperatively with minimal pain. Given her super obesity she was not a candidate for tap block. Local was instilled. Postoperatively she successfully passed trial of void. Postoperatively the patient was managed for postoperative analgesia and resumption of bowel function. Patient had successfully passed trial of void. Tolerated oral intake without any complication. Denied nausea denied vomiting. Was advanced for diet without any complication. She was out of bed with abdominal binder as instructed. Continued to pass flatus. Loose stooling had resolved. Hospital service had seen the patient throughout her stay both for preoperative risk assessment as well as for postoperative management of her comorbid states. After discussion with the hospital service patient was discharged on her historic diabetic hypoglycemic regimen. Plan was for follow-up with Dr. Saenz as an outpatient. Discharge instructions given. Analgesia with [place] for which the patient had tolerated historically as she refused oxycodone secondary to reported allergy provided at time of discharge. Patient plan for follow-up and will be notified of pathology once returned. - ALLERGIES Allergies/Adverse Reactions: Allergies Allergy/AdvReac Type Severity Reaction Status Date / Time fluoxetine HCl * Allergy Unknown Verified 04/17/20 15:37 [From Prozac] latex Allergy Hives Verified 04/17/20 15:37 lisinopril Allergy Unknown Verified 04/17/20 15:37 mercury (elemental) Allergy Unknown Verified 04/17/20 15:37 oxycodone Allergy Unknown Verified 04/17/20 15:37 pertussis vaccine,adsorbed Allergy Unknown Verified 04/17/20 15:37 - MEDICATIONS Home Medications: Ambulatory Orders Medication Instructions Recorded Confirmed Diazepam [Valium] 10 mg PO Q8H PRN 05/15/16 05/15/16 Estradiol [Estrace] 42.5 gm VG DAILY 05/15/16 05/15/16 Glipizide [Glipizide Xl] 2 tab PO BID 05/15/16 05/15/16 Insulin Aspart [Novolog Flexpen] 10 - 20 units SQ TIDWM 05/15/16 Insulin Glargine,Hum.rec.anlog 56 units SQ DAILY PM 05/15/16 05/15/16 [Lantus] Losartan [Cozaar] 25 mg PO DAILY 05/15/16 05/15/16 methocarbamoL [Methocarbamol] 500 - 1,000 mg PO QID PRN 05/15/16 05/15/16 Gabapentin 600 mg PO QPM 06/28/19 06/28/19 Montelukast [Singulair] 10 mg ORAL DAILY 06/28/19 06/28/19 Gabapentin 100 04/21/20 HYDROcod/ACETAM 5/325 [[place] 5/325] 1 - 2 ea PO Q4H PRN #40 tablet 04/21/20 Nitrofurantoin [Macrobid] 100 mg PO DAILY 04/21/20 Ondansetron HCl [Zofran] 4 mg PO Q6HR PRN #30 tab 04/21/20 diazePAM [Diazepam] 5 - 10 mg PO Q8H PRN 04/21/20 methocarbamoL [Robaxin] 500 mg PO Q6HR PRN #30 tablet 04/21/20 - PHYSICAL EXAM AT DISCHARGE General Appearance: positive: No acute distress Eyes Bilateral: positive: Normal inspection, PERRL, EOMI Neck: positive: Nml inspection Respiratory: positive: Chest non-tender, No respiratory distress, Breath sounds nml, Other (Surgical sites clean dry and intact, all dressings in place and advised to be removed within 24 to [address] at the level of the umbilicus exiting from the right lower quadrant wound serosanguineous, u mbilical dressings clean dry and intact. Patient with no abdominal pain overall fe). negative: Wheezes, Rales, Rhonchi Cardiovascular: positive: Regular rate & rhythm Abdomen: positive: Non-tender, No distention, Other. negative: Tenderness, Guarding, Rebound Skin: positive: Color nml Extremities: positive: Non-tender, Full ROM, Nml appearance Neurologic/Psychiatric: positive: Oriented x3, CN's nml (2-12) - LABS Result Diagrams: 04/21/20 06:40 04/21/20 06:40 - DIAGNOSTIC IMAGING Diagnostic Imaging Results: Final report reviewed, Other (Patient had already had imaging during her previous emergency room admission/evaluation) - SEPSIS Current Stage of Sepsis: Ruled out - QUALITY (Female Hip Fx Only) Was patient sent home on osteoporosis medication?: No - FOLLOW UP Follow Up: Follow-up with primary care Dr. Saenz within 1 to 2 weeks of discharge. Follow-up with surgical services it would be health, either Dr. Shane Calvert or Dr. Jones Paidlla for wound check, drain removal, and staple removal. - TIME SPENT Time Spent in Discharge (Minutes): 45"
[2020-04-21 16:40] VITALS: BP 143/60
== END 2020-04-21 16:58 | disposition home health service (06) ==
LOC: EDUNIT# → ED 11:23 → MS2 17:42
PROVIDERS: ADMIT Surgery; ATTEND Surgery
PROC: 0WUF0JZ Supplement Abdominal Wall with Synthetic Substitute, Open Approach (ICD-10-PCS; principal; 2020-04-19)
PROC: 0DNU0ZZ Release Omentum, Open Approach (ICD-10-PCS; 2020-04-19)
DX: K43.0 Incisional hernia with obstruction, without gangrene (principal); E66.01 Morbid (severe) obesity due to excess calories; Z68.44 Body mass index [BMI] 60.0-69.9, adult; R62.7 Adult failure to thrive; E11.9 Type 2 diabetes mellitus without complications; Z79.4 Long term (current) use of insulin; G47.33 Obstructive sleep apnea (adult) (pediatric); F32.9 Major depressive disorder, single episode, unspecified; F41.9 Anxiety disorder, unspecified; Z90.49 Acquired absence of other specified parts of digestive tract; I10 Essential (primary) hypertension; L50.9 Urticaria, unspecified
CPT/HCPCS: 36415; 49566; 49568; 49999; 80053; 81003; 83690; 85025; 93005; 94640; 96361; 96374; 99284; 99285; A9270; G0378; J0131; J0330; J1170; J1650; J1815; J2060; J2765; J7120; 81001; 87086

== ENCOUNTER 2020-10-18 11:22 | Outpatient (CLI) | payer OTHER ==
--- NOTE | 2020-10-18 11:49 | SLEEP CARE CONSULTATION ---
Information from patient questionnaire entered by Sobia Reyes. I have reviewed and concur with the information entered by Sobia Reyes. This document represents the service I personally performed and the decisions made by , Angela Pinedo ARNP. History of Present Illness Service Date and Time: 10/18/2020 112 Previous diagnosis: Moderate, Obstructive Sleep Apnea-Hypopnea Syndrome AHI: 16.9 (in 2010) Reason for follow up: other (7 month) Equipment type: BiPAP Equipment obtained from: [employer] (getting supplies as needed since transfer) Mask style: Nasal pillows Backup mask available: Yes (old mask) Last cushion change: 2 weeks Prior sleep studies: Yes Year and Where: 2010 - [facility] Sleep Type of Sleep Study: Polysomnography HPI additional information: JOJO TREADWELL was diagnosed to have moderate, AHI 16.9, obstructive sleep apnea-hypopnea syndrome and returned today for BIPAP therapy seven month follow- up due to machine malfunction. CPAP Compliance Data - Data Reviewed with Patient Average duration of nightly device use: 6 hr 15 min Compliance rate %: 86.7 Current pressure setting (cmH2O): 20/12 Humidity settin Heated hose settin Average residual AHI: 3.1 Central apnea: 0.3 Obstructive apnea: 2.3 Average large leak: 4 sec Subjective Missed days of use due to: reports: other (machine stopped working 2 days ago; message to service machine) Patient concerns: denies: aerophagia, mask discomfort, air blowing in eyes, mask leak noise, condensation in mask/hose, nasal congestion, dry mouth, nose, throat, epistaxis, other Observed to snore while using device: No Current pressure setting perceived as: comfortable On therapy, patient: reports: sleeping better, awakening more refreshed, being more awake and alert during the day, more rested overall. denies: drowsiness while driving Initial [place] Sleepiness Scale score: 7 (in 2009) Current [place] Sleepiness Scale score: 4 Allergies and Home Medications Home medication list reviewed: Yes (no changes) Review of Systems Review of systems same as previous: Yes (no changes) Physical Exam Heart Rate: 71 O2 Saturation: 99 Height: 5 ft 5 in Weight: 354 lb Body Mass Index: 58.8 BMI Classification: Morbidly Obese Impression and Plan 1. Obstructive Sleep Apnea-Hypopnea Syndrome, moderate, with good treatment compliance and good apnea control. On BIPAP therapy, the patient has better sleep quality and is more rested overall. She was woken up 2 nights ago with some noise coming from machine and then it stopped functioning. She does not like to go without her BIPAP therapy, she states she is already biting her tongue like before without it. The patients CPAP is of reasonable use and in addition, it is starting to make louder noise prior to stopping working, a sign of malfunction. Her machine will not work and just shows a message stating it needs servicing. Thus, the BIPAP will be updated. A DWO prescription will be made and I will geovanna it urgent so she may get a replacement as soon as possible. Compliance guidelines for new device and follow up discussed. Patient's apnea se verity and rationale for treatment to reduce apnea, improve sleep quality and reduce cardiovascular and cerebrovascular events was reviewed. * Continue auto BIPAP pressure at 20/12 cmH2O * Update auto BIPAP * Notify me if snoring with mask or feeling that the pressure is too much or too little * Call this office if any problems using BIPAP * Return for follow up 1 month after getting new machine, or sooner if concerns arise Counseling Topics: Spare mask Visit Type: In Office Time Spent with Patient (minutes): 22 Provider Statement: I spent 100% of the Face to Face Visit with the patient with greater than 50% spent counseling the patient and coordination of care.
== END 2020-10-18 11:23 | disposition home or self-care (01) ==
LOC: SC 11:22
PROVIDERS: ATTEND Nurse Practitioner Family
DX: G47.33 Obstructive sleep apnea (adult) (pediatric) (principal); E66.01 Morbid (severe) obesity due to excess calories; Z68.43 Body mass index [BMI] 50.0-59.9, adult
CPT/HCPCS: 99212; 99213

== ENCOUNTER 2020-12-26 09:48 | Outpatient (CLI) | payer OTHER ==
--- NOTE | 2020-12-26 10:12 | SLEEP CARE CONSULTATION ---
Information from patient questionnaire entered by Sobia Reyes. I have reviewed and concur with the information entered by Sobia Reyes. This document represents the service I personally performed and the decisions made by , Angela Pinedo ARNP. History of Present Illness Service Date and Time: 12/26/2020 0948 Previous diagnosis: Moderate, Obstructive Sleep Apnea-Hypopnea Syndrome AHI: 16.9 (in 2010) Reason for follow up: first compliance after device update Equipment type: BiPAP Equipment obtained from: [email or web address] (getting supplies as needed) Mask style: Nasal pillows Backup mask available: Yes (old mask) Last cushion change: 1 week ago Prior sleep studies: Yes Year and Where: 2010 - [facility] Sleep Type of Sleep Study: Polysomnography HPI additional information: JOJO TREADWELL was diagnosed to have moderate, AHI 16.9, obstructive sleep apnea-hypopnea syndrome and returned today for BIPAP therapy first compliance after updating device follow-up. CPAP Compliance Data - Data Reviewed with Patient Average duration of nightly device use: 6 hr 51 min Compliance rate %: 93.3 Current pressure setting (cmH2O): 20/12 Humidity settin Heated hose settin Average residual AHI: 3.1 Average large leak: 20 sec Subjective Patient concerns: denies: aerophagia, mask discomfort, air blowing in eyes, mask leak noise, condensation in mask/hose, nasal congestion, dry mouth, nose, throat, epistaxis, other Observed to snore while using device: No Current pressure setting perceived as: comfortable On therapy, patient: reports: sleeping better, awakening more refreshed, being more awake and alert during the day, more rested overall. denies: drowsiness while driving Initial [place] Sleepiness Scale score: 7 (in 2009) Current [place] Sleepiness Scale score: 5 Allergies and Home Medications Home medication list reviewed: Yes (no new meds) Review of Systems Review of systems same as previous: Yes (no changes) Physical Exam Heart Rate: 86 O2 Saturation: 99 Height: 5 ft 5 in Weight: 357 lb Body Mass Index: 59.3 BMI Classification: Morbidly Obese Impression and Plan 1. Obstructive Sleep Apnea-Hypopnea Syndrome, moderate, with good treatment compliance and good apnea control. On BIPAP therapy, the patient has better sleep quality and is more rested overall. She has significant improvement of her sleep apnea and is satisfied with her treatment. 2. Morbid obesity, unspecified. Currently patients BMI is 59.3. Obesity increases the risk of apnea, BIPAP pressure requirements and overall health risks especially cardiovascular and diabetes. Patient is working on getting bariatric surgery. Thus patient is advised to continue to try lose weight. Weight loss can be done with reducing portion size, reducing refined foods and balancing content with vegetables, fruit and whole grain foods. Patient's apnea severity and rationale for treatment to reduce apnea, improve sleep quality and reduce cardiovascular and cerebrovascular events was reviewed. I also reviewed the benefit of consistent device use of BIPAP for diabetes and anxiety. * Continue auto BIPAP pressure at 20/12 cmH2O * Notify me if snoring with mask or feeling that the pressure is too much or too little * Attempt to lose weight * Call this office if any problems using BIPAP * Return for follow up in 1 year, or sooner if concerns arise Counseling Topics: Spare mask, Weight loss health impact Visit Type: In Office Time Spent with Patient (minutes): 14 Provider Statement: I spent 100% of the Face to Face Visit with the patient with greater than 50% spent counseling the patient and coordination of care.
== END 2020-12-26 09:49 | disposition home or self-care (01) ==
LOC: SC 09:48
PROVIDERS: ATTEND Nurse Practitioner Family
DX: G47.33 Obstructive sleep apnea (adult) (pediatric) (principal); E66.01 Morbid (severe) obesity due to excess calories; Z68.43 Body mass index [BMI] 50.0-59.9, adult
CPT/HCPCS: 99212

== ENCOUNTER 2021-09-01 22:58 | Emergency (ER) | payer OTHER ==
--- NOTE | 2021-09-01 23:40 | ED Physician Documentation ---
History of Present Illness - Stated complaint Stated Complaint: R EYE TWITCH - Chief complaint Chief Complaint: Neuro - History obtained from History obtained from: Patient - History of Present Illness Timing: How many days ago (3) Pain level max: 0 Pain level now: 0 Improved by: no ameliorating factors Worsened by: no exacerbating factors - Additonal information Additional information: patient c/o 3 days of symptoms: she has had sensation of right eye moving /twitching, vertical diplopia, right facial numbness. She says that yesterday she also had unsteady gait causing her to fall (did not sustain injuries nor have LOC/head injury), but she says the unsteady gait has resolved. Denies h/o similar symptoms. Review of Systems Constitutional: denies: Fever, Chills, Myalgias, Fatigue, Sweats Eyes: reports: Other (diplopia, sensation of right eye nystagmus (no nystagmus on exam)). denies: Loss of vision, Decreased vision, Photophobia, Discharge Ears: denies: Ear pain, Drainage/discharge Cardiac: reports: Reviewed and negative Respiratory: reports: Reviewed and negative GI: reports: Reviewed and negative : denies: Dysuria, Frequency Neurologic: reports: Numbness (right face), Headache. 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 : Chronic bladder infection Psych: Depression, Anxiety (takes valium 5-10 mg prn, sometimes need at night) Musculoskeletal: Chronic back pain, Other (has R LE weakness, at times R LE gives out, source not identified, one fall) Derm: None, Other (hx of urticaria of unknown source, is on singulair) - Past Surgical History Past Surgical History: Yes General: Cholecystectomy Ortho: Other HEENT: Tonsil/Adenoidectomy - Present Medications Home Medications: Ambulatory Orders Medication Instructions Recorded Confirmed Diazepam [Valium] 10 mg PO Q8H PRN 05/15/16 05/15/16 Estradiol [Estrace] 42.5 gm VG DAILY 05/15/16 05/15/16 Glipizide [Glipizide Xl] 2 tab PO BID 05/15/16 05/15/16 Insulin Aspart [Novolog Flexpen] 10 - 20 units SQ TIDWM 05/15/16 Insulin Glargine,Hum.rec.anlog 56 units SQ DAILY PM 05/15/16 05/15/16 [Lantus] Losartan [Cozaar] 25 mg PO DAILY 05/15/16 05/15/16 methocarbamoL [Methocarbamol] 500 - 1,000 mg PO QID PRN 05/15/16 05/15/16 Gabapentin 600 mg PO QPM 06/28/19 06/28/19 Montelukast [Singulair] 10 mg ORAL DAILY 06/28/19 06/28/19 Gabapentin 100 04/21/20 HYDROcod/ACETAM 5/325 [[place] 5/325] 1 - 2 ea PO Q4H PRN #40 tablet 04/21/20 Nitrofurantoin [Macrobid] 100 mg PO DAILY 04/21/20 Ondansetron HCl [Zofran] 4 mg PO Q6HR PRN #30 tab 04/21/20 diazePAM [Diazepam] 5 - 10 mg PO Q8H PRN 04/21/20 methocarbamoL [Robaxin] 500 mg PO Q6HR PRN #30 tablet 04/21/20 Hydrocodone/Acetaminophen 1 each PO Q4HR PRN #20 tablet 05/02/20 [Hydrocodone-Acetamin 5-325 mg] Ondansetron Odt [Zofran Odt] 4 mg PO Q6H PRN #10 tablet 05/02/20 - Allergies Allergies/Adverse Reactions: Allergies Allergy/AdvReac Type Severity Reaction Status Date / Time fluoxetine HCl * Allergy Unknown Verified 09/01/21 23:19 [From Prozac] latex Allergy Hives Verified 09/01/21 23:19 lisinopril Allergy Unknown Verified 09/01/21 23:19 mercury (elemental) Allergy Unknown Verified 09/01/21 23:19 oxycodone Allergy Unknown Verified 09/01/21 23:19 pertussis vaccine,adsorbed Allergy Unknown Verified 09/01/21 23:19 - Social History Does the pt smoke?: No Smoking Status: Former smoker (quit 1989) Does the pt drink ETOH?: Yes Does the pt have substance abuse?: No - Immunizations Immunizations are current?: Yes - POLST Patient has POLST: No POLST Status: Full Code PD ED PE NORMAL - Vitals Vital signs reviewed: Yes - General General: Alert and oriented X 3, No acute distress, Well developed/nourished - HEENT HEENT: Atraumatic, PERRL, EOMI, Ears normal, Moist mucous membranes - Neck Neck: Supple, no meningeal sign - Cardiac Cardiac: RRR, No murmur - Respiratory Respiratory: No respiratory distress, Clear bilaterally - Abdomen Abdomen: Soft, Non tender - Neuro Neuro: Alert and oriented X 3, fund director 2-12 intact, No motor deficit, Normal speech, Other (decreased LTS right upper and mid face) Eye Opening: Spontaneous Motor: Obeys Commands Verbal: Oriented GCS Score: 15 - Psych Psych: Normal mood, Normal affect Results - Vitals Vitals: Vital Signs - 24 hr 09/01/21 09/01/21 09/02/21 23:09 23:49 01:19 Temperature 37 C Heart Rate 72 78 81 Respiratory 20 20 18 Rate Blood Pressure 148/63 H 133/57 H 162/84 H O2 Saturation 98 99 98 09/02/21 01:49 Temperature Heart Rate 82 Respiratory 18 Rate Blood Pressure 132/62 H O2 Saturation 98 Oxygen O2 Source Room air - Labs Labs: Laboratory Tests 09/01/21 09/01/21 09/01/21 00:09 23:35 23:35 WBC 8.6 RBC 4.09 L Hgb 11.8 L Hct 37.6 MCV 91.9 MCH 28.9 MCHC 31.4 L RDW 12.8 Plt Count 232 MPV 10.0 Neut # (Auto) 5.5 Lymph # (Auto) 2.0 Moody # (Auto) 0.8 Eos # (Auto) 0.2 Baso # (Auto) 0.0 Absolute Nucleated RBC 0.00 Nucleated RBC % 0.0 Sodium 137 Potassium 4.4 Chloride 104 Carbon Dioxide 23 Anion Gap 10.0 BUN 17 Creatinine 0.7 Estimated GFR (MDRD) 85 L Glucose 323 H Calcium 9.0 Total Bilirubin 0.5 AST 18 ALT 24 Alkaline Phosphatase 50 Total Protein 7.6 Albumin 3.5 Globulin 4.1 Albumin/Globulin Ratio 0.9 L Lipase 20 L TSH 3.60 - Rads (name of study) CT head w/wo contrast Radiology: Prelim report reviewed, See rad report PD MEDICAL DECISION MAKING - ED course Complexity details: reviewed results, re-evaluated patient, considered differential, d/w patient ED course: c/o 2 days of right facial numbness, sensation of right eye flickering/movement (although there is no nystagmus on exam and EOMI intact bilaterally), and intermittent diplopia (vertical). Unremarkable physical exam aside from decreased LTS right upper/mid face. There is no facial droop, no facial asymmetry. [id number] intact bilaterally. Unremarkable CTH (with and w/o contrast), and blood tests unremarkable except for hyperglycemia (she is known diabetic; this finding would not explain symptoms). Results reviewed and lack of etiology was part of the discussion. She is comfortable with d/c home, will return if worse or new concerning signs/symptoms develop, will pursue follow up with her primary care provider and possibly her clearance cutter Departure - Departure Disposition: 01 Home, Self Care Clinical Impression: Right facial numbness Condition: Good Instructions: ED Paraesthesias Follow-Up: CHRIS LING [Primary Care Provider] - Comments: As we discussed, tonight's tests do not reveal any cause of your symptoms nor concerning findings aside from high blood sugar (even though the blood sugar is high, it would not cause these symptoms). Follow up with your primary care provider. As we discussed, you can also be evaluated by your clearance cutter if this can be arranged. Your primary care provider might order further testing and/or referral, such as to a neurologist. Forms: Activity restrictions Discharge Date/Time: 09/02/21 02:00
[2021-09-02] MEDS ORDERED: IOPAMIDOL-300 100 ML VIAL ONE (00:13)
[2021-09-02 00:14] LABS: BASOPHILS % (AUTO) 0.5 %; EOSINOPHILS # (AUTO) 0.2 10^3/uL (0.0-0.7); EOSINOPHILS % (AUTO) 2.6 %; HCT - HEMATOCRIT 37.6 % (37.0-47.0); HGB - HEMOGLOBIN 11.8 g/dL (12.0-16.0); LYMPHOCYTES % (AUTO) 23.3 %; MEAN CORPUSCULAR HEMOGLOBIN 28.9 pg (27.0-31.0); MEAN CORPUSCULAR HGB CONC 31.4 g/dL (32.0-36.0); MEAN CORPUSCULAR VOLUME 91.9 fL (81.0-99.0); MONOCYTES # (AUTO) 0.8 10^3/uL (0.0-1.0); MONOCYTES % (AUTO) 9.4 %; NEUTROPHILS # (AUTO) 5.5 10^3/uL (1.5-6.6); PLT - PLATELET COUNT 232 10^3/uL (130-450); RED BLOOD COUNT 4.09 10^6/uL (4.20-5.40); RED CELL DISTRIBUTION WIDTH 12.8 % (12.0-15.0); WHITE BLOOD COUNT 8.6 x10^3/uL (4.8-10.8)
[2021-09-02 00:23] LABS: ALBUMIN 3.5 g/dL (3.2-5.5); ALBUMIN/GLOBULIN RATIO 0.9 (1.0-2.2); BILIRUBIN,TOTAL 0.5 mg/dL (0.2-1.0); CREATININE 0.7 mg/dL (0.4-1.0); POTASSIUM 4.4 mmol/L (3.5-5.0); TOTAL PROTEIN 7.6 g/dL (6.7-8.2)
[2021-09-02] MEDS ORDERED: IOPAMIDOL-300 100 ML VIAL IVP ONE (00:54)
--- NOTE | 2021-09-02 01:06 | CT Report ---
PROCEDURE: HEAD W/WO INDICATIONS: left facial numbness, diplopia TECHNIQUE: 4.5 mm thick angled axial sections acquired from the foramen magnum to the vertex before and after th e administration of intravenous contrast. For radiation dose reduction, the following was used: aut omated exposure control, adjustment of mA and/or kV according to patient size. CONTRAST: IV CONTRAST: Isovue 300 ml: 100 PO CONTRAST: *NO PO CONTRAST COMPARISON: None. FINDINGS: Image quality: Excellent. CSF spaces: Basal cisterns are patent. No extra-axial fluid collections. Ventricles are normal in size and shape. Brain: No intracranial hemorrhage, mass, or mass effect. Carney-white matter interface appears preser kareem. No evidence of abnormal intracranial enhancement. Skull and face: Calvarium and visualized facial bones appear intact, without suspicious lesions. Sinuses: Visualized sinuses and mastoids are clear. IMPRESSION: 1. No acute intracranial abnormality. Reviewed by: Quentin Lemons MD on 09/02/2021 1:05 AM [facility] [place] Approved by: Quentin Lemons MD on 09/02/2021 1:05 AM [facility] [place] Station ID: [id number]
[2021-09-02 01:52] VITALS: BP 132/62
== END 2021-09-02 02:00 | disposition home or self-care (01) ==
LOC: ED 22:58
DX: R20.0 Anesthesia of skin (principal); E11.65 Type 2 diabetes mellitus with hyperglycemia; Z79.4 Long term (current) use of insulin; Z79.84 Long term (current) use of oral hypoglycemic drugs; Z87.891 Personal history of nicotine dependence
CPT/HCPCS: 36415; 70470; 80053; 83690; 84443; 85025; 99282; 99284; Q9967